=== PATIENT | male | born 1960 | race Caucasian/White ===

== ENCOUNTER → 2020-08-04 16:01 | Outpatient (BNVA) | payer BC, SELFPAY | PROVIDERS: Visit Provider Nurse Practitioner Family | DX: Z86.73 Personal history of transient ischemic attack (TIA), and cerebral infarction without residual deficits (principal); Z51.81 Encounter for therapeutic drug level monitoring; Z79.01 Long term (current) use of anticoagulants | CPT/HCPCS: 85610; 99211 ==

== ENCOUNTER → 2020-08-25 15:41 | Outpatient (BNVA) | payer BC, SELFPAY | PROVIDERS: PCP Nurse Practitioner Family; Visit Provider Internal Medicine | DX: Z86.73 Personal history of transient ischemic attack (TIA), and cerebral infarction without residual deficits (principal); Z51.81 Encounter for therapeutic drug level monitoring; Z79.01 Long term (current) use of anticoagulants | CPT/HCPCS: 85610 ==

== ENCOUNTER → 2020-09-15 15:36 | Outpatient (BNVA) | payer BC, SELFPAY | PROVIDERS: PCP Nurse Practitioner Family; Visit Provider Internal Medicine | DX: Z86.73 Personal history of transient ischemic attack (TIA), and cerebral infarction without residual deficits (principal); Z51.81 Encounter for therapeutic drug level monitoring; Z79.01 Long term (current) use of anticoagulants | CPT/HCPCS: 85610; 99211 ==

== ENCOUNTER → 2020-10-06 15:40 | Outpatient (BNVA) | payer BC, SELFPAY | PROVIDERS: PCP Nurse Practitioner Family; Referring Provider Nurse Practitioner Family; Visit Provider Internal Medicine | DX: Z86.73 Personal history of transient ischemic attack (TIA), and cerebral infarction without residual deficits (principal); Z51.81 Encounter for therapeutic drug level monitoring; Z79.01 Long term (current) use of anticoagulants | CPT/HCPCS: 85610; 99211 ==

== ENCOUNTER → 2020-10-25 09:05 | Outpatient (BNVA) | payer BC, SELFPAY | PROVIDERS: PCP Nurse Practitioner Family; Visit Provider Internal Medicine | DX: Z86.73 Personal history of transient ischemic attack (TIA), and cerebral infarction without residual deficits (principal); Z79.01 Long term (current) use of anticoagulants; Z51.81 Encounter for therapeutic drug level monitoring | CPT/HCPCS: 85610; 99211 ==

== ENCOUNTER 2020-11-10 06:16 | Day surgery (SDC) | payer BC, SELFPAY ==
[2020-11-02 14:34] VITALS: BMI 23.7
--- NOTE | 2020-11-09 12:46 | P.CONAN_ITS ---
Documented by User: Jessica Mcleod 11/09/20 12:46 HPI - Anesthesia Eval Consult details Narrative: 60yo M for Colonoscopy [facility] Past Medical History Medical History (Updated 11/10/20 @ 07:33 by Elle Buckley) Allergic rhinitis High cholesterol History of CVA (cerebrovascular accident) Hypertension On anticoagulant therapy RBBB Surgical History Surgical History H/O wrist surgery Hx of colonoscopy Hx of right inguinal hernia repair Social History Social History Advance Directives: No Advance Directives Information Provided: No Advance Directives on File: No Meds Allergies Allergy/AdvReac Type Severity Reaction Status Date / Time amoxicillin [Augmentin] Allergy Unknown RASH Verified 11/02/20 13:58 clavulanic acid [Augmentin] Allergy Unknown RASH Verified 11/02/20 13:58 penicillin V Allergy Unknown rash Verified 11/02/20 13:58 augmentin Allergy Unknown hives, Uncoded 11/02/20 13:58 swelling Clenbuterol HCl Allergy Unknown swelling Uncoded 11/02/20 13:58 Clindamycin HCl Allergy Unknown swelling Uncoded 11/02/20 13:58 Home Medications Medication Instructions Recorded Confirmed Type amlodipine 5 mg tablet 5 mg PO DAILY 10/25/20 11/02/20 History atorvastatin 80 mg tablet 80 mg PO BEDTIME 10/25/20 11/02/20 History Exam Exam Date and Time: November 09, 2020 1246 Height,Weight and Vital Signs: Height 5 ft 11 in Weight 77.111 kg Assessment and Plan Assessment Anesthesia Assessment: Chart Reviewed Documented by User: Elle Buckley 11/10/20 07:37 [facility] Past Medical History Medical History (Updated 11/10/20 @ 07:33 by Elle Buckley) Allergic rhinitis High cholesterol History of CVA (cerebrovascular accident) Hypertension On anticoagulant therapy RBBB Family History Family history of problems with anesthesia: No Surgical History Surgical History H/O wrist surgery Hx of colonoscopy Hx of right inguinal hernia repair History of Problems with Anesthesia: No Social History Social History Advance Directives: No Advance Directives Information Provided: No Advance Directives on File: No Meds Allergies Allergy/AdvReac Type Severity Reaction Status Date / Time amoxicillin [Augmentin] Allergy Unknown RASH Verified 11/02/20 13:58 clavulanic acid [Augmentin] Allergy Unknown RASH Verified 11/02/20 13:58 penicillin V Allergy Unknown rash Verified 11/02/20 13:58 augmentin Allergy Unknown hives, Uncoded 11/02/20 13:58 swelling Clenbuterol HCl Allergy Unknown swelling Uncoded 11/02/20 13:58 Clindamycin HCl Allergy Unknown swelling Uncoded 11/02/20 13:58 Home Medications Medication Instructions Recorded Confirmed Type amlodipine 5 mg tablet 5 mg PO DAILY 10/25/20 11/02/20 History atorvastatin 80 mg tablet 80 mg PO BEDTIME 10/25/20 11/02/20 History Exam Height,Weight and Vital Signs: Vital Signs Temp Pulse Resp BP Pulse Ox 11/10/20 07:04 99.1 F 103 H 18 143/76 H 98 Pertinent Lab Results Pertinent Lab Results: Lab Results 11/10/20 Range/Units 06:49 PT 13.0 (10.8-13.0) SEC INR 1.1 (0.9-1.1) Airway Mallampati Class: II TM Dist: >3cm Neck ROM: Full Partial: Upper Loose/Missing/Broken Teeth: No Heart: RRR Lungs: CTAB Assessment and Plan Assessment Anesthesia Assessment: Anesthesia Plan Discussed and Chart Reviewed Final Anesthetic Review NPO: Yes ASA Class: III Final Preanesthetic Review: No Changes in Pt Med Stat, Meds/Allgs Chart Reviewed, Consent Obtained/Reviewed and Anes Risks/Benef Reviewed Patient Risk: Intermediate Procedure Risk: Low Anesthetic Plan Anesthetic Plan: MAC: Disposition: Standard PACU
--- NOTE | 2020-11-10 | CT_ITS ---
EXAMINATION: CT COLONOGRAPHY CLINICAL INFORMATION: Incomplete colonoscopy COMPARISON: None TECHNIQUE: Bowel preparation: Suboptimal. Stool tagging with Gastrografin and barium: No stool tagging was utilized. Colonic distention: CO2 mechanical insufflator used via enema tube with incomplete distention. Acquisition: Low dose imaging targeted to colonic was performed in the supine and prone positions. Procedure: No immediate complication reported. Review: The acquired images were reviewed in axial, coronal and sagittal planes. Additional 3-D fly through images were reviewed at an independent workstation. This CT examination was performed using dose optimization techniques as appropriate, variously including the following: *Automated exposure control *Adjustment of mA and/or kV according to patient size (this includes techniques or standardized protocols for targeted exams where dose is matched to indication/reason for exam; i.e. 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 No large mass or collection suspected Colonic findings: The study is limited by incomplete distention, retained fluid and fecal residue. There is no large mass or suspicious polyp demonstrated. Small or moderate sized abnormalities could be obscured. There are some scattered colonic diverticula and there is some muscular wall thickening in the sigmoid colon. Non-colonic findings: No suspicious noncolonic findings CT/CT colonography IMPRESSION: Limited study. No convincing evidence of colon cancer or polyp likely to harbor significant neoplasia. I will seek a second opinion from Dr. Winters.
[2020-11-10 07:03] LABS: INTERNATIONAL NORM RATIO 1.1 (0.9-1.1)
[2020-11-10 07:04] VITALS: BP 143/76; PULSE 103; RESP 18; TEMP 37.3; O2SAT 98
[2020-11-10] MEDS: Lactated Ringers 1,000 ML 100 ML IVCONT (07:30)
--- NOTE | 2020-11-10 07:31 | MHC.SHP ---
Pre-Procedural Eval Section B Chief Complaint: Screening Details of Present Illness: See H&P no changes Relevant Family History (Specify if Yes): No Relevant Social History: None Present Medications: see Short Stay Collaborative assessment Medical History: Significant History (see h&p) History of Previous Operations: No relevant previous surgery Allergies: Allergies Allergy/AdvReac Type Severity Reaction Status Date / Time amoxicillin [Augmentin] Allergy Unknown RASH Verified 11/02/20 13:58 clavulanic acid [Augmentin] Allergy Unknown RASH Verified 11/02/20 13:58 penicillin V Allergy Unknown rash Verified 11/02/20 13:58 augmentin Allergy Unknown hives, Uncoded 11/02/20 13:58 swelling Clenbuterol HCl Allergy Unknown swelling Uncoded 11/02/20 13:58 Clindamycin HCl Allergy Unknown swelling Uncoded 11/02/20 13:58 Review of Systems Sugical H&P ROS: Negative: Constitution, Cardiovascular, Respiratory, Neurological, Psychiatric, Hem-Onc, Allergic/Immunologic, Gastrointestinal, Genitourinary, Musculoskeletal, Integumentary, Endocrine and Eyes/Ears/Nose/Throat Exam Surgical H&P Exam: Normal: HEENT, Normal: Heart, Normal: Lungs, Normal: Extremities, Normal: Abdomen, Normal: Skin and Normal: Neurological Plan Diagnosis/Plan: Unchanged I have reviewed the history and physical and performed a pertinent physical examination on my patient. No changes have occurred unless specified.
--- NOTE | 2020-11-10 07:59 | PM.OP ---
Brief Operative Note Date of Service: 11/10/20 Pre-op diagnosis: screening Post-op diagnosis: other (diverticulosis) Procedure: colonoscopy incomplete to 30 cm Surgeon: Bert Berg Anesthesia: MAC Estimated blood loss (mL): 0 Pathology: none sent Condition: stable Disposition: PACU
[2020-11-10 08:05] VITALS: BP 112/70; PULSE 82; RESP 16; TEMP 36.4; O2SAT 96
[2020-11-10 08:20] VITALS: BP 120/69; PULSE 80; RESP 18; O2SAT 97
--- NOTE | 2020-11-10 08:24 | OP_ITS ---
SURGEON: Bert Berg MD INDICATIONS: Colon cancer screening and prior history of adenomatous colon polyps. PREOPERATIVE DIAGNOSIS: POSTOPERATIVE DIAGNOSIS: PROCEDURE PERFORMED: Colonoscopy to 30 cm. ESTIMATED BLOOD LOSS: COMPLICATIONS: ANESTHESIA: ASSISTANTS: SPECIMENS: MEDICATIONS: Monitored anesthesia care. DESCRIPTION OF PROCEDURE: The history and physical performed. The risks and benefits of the procedure were explained to the patient. Informed consent was obtained. The patient was placed in the left lateral decubitus position. A digital rectal exam was performed and was found to be normal. The Olympus pediatric video colonoscope was introduced into the rectum and advanced to 30 cm. The scope could be advanced no further due to extensive diverticular disease with luminal narrowing. Examination was performed. The scope was removed. He tolerated the procedure well and was taken to recovery area in stable condition. FINDINGS: The visualized colonic mucosa was normal. The quality of prep was good. There was extensive diverticular disease in the sigmoid. The scope could not be advanced beyond 30 cm. No mass lesion was identified. Retroflexed examination was normal. IMPRESSION: Incomplete colonoscopy, diverticulosis. RECOMMENDATIONS: CT colonography after routine recovery. MD HOLLIE Wheeler/SU / [id number]
[2020-11-10 08:35] VITALS: BP 123/75; PULSE 87; RESP 20; O2SAT 97
--- NOTE | 2020-11-10 09:27 | HO.POSTANES ---
Post Anesthesia Evaluation Post Anesthesia Evaluation Vital Signs: Vital Signs Temp Pulse Resp BP Pulse Ox 11/10/20 08:35 97.5 F 87 20 123/75 97 11/10/20 08:20 80 18 120/69 97 11/10/20 08:05 97.5 F 82 16 112/70 96 11/10/20 07:04 99.1 F 103 H 18 143/76 H 98 Anesthesia: Monitored Mental Status: Awake Pain Control: Satisfactory Nausea/Vomiting: None Hydration: Adequate Anesthesia-Related Issues: No Anes. Related Issues
== END 2020-11-10 09:30 | disposition home or self-care (01) ==
LOC: HO.SSS 06:17
PROVIDERS: Nurse Practitioner; PCP Nurse Practitioner Family; Visit Provider Internal Medicine Gastroenterology
PROC: 0DJD8ZZ Inspection of Lower Intestinal Tract, Via Natural or Artificial Opening Endoscopic (ICD-10-PCS; CPT 45378; principal; 2020-11-10 07:30)
DX: Z12.11 Encounter for screening for malignant neoplasm of colon (principal); Z86.010 Personal history of colon polyps; K57.30 Diverticulosis of large intestine without perforation or abscess without bleeding; I10 Essential (primary) hypertension; I45.10 Unspecified right bundle-branch block; Z86.73 Personal history of transient ischemic attack (TIA), and cerebral infarction without residual deficits; Z79.01 Long term (current) use of anticoagulants; Z88.0 Allergy status to penicillin; Z88.8 Allergy status to other drugs, medicaments and biological substances; Z79.899 Other long term (current) drug therapy
CPT/HCPCS: 45378; 36415; 74261; 85610

== ENCOUNTER → 2020-11-13 15:27 | Outpatient (BNVA) | payer BC, SELFPAY | PROVIDERS: PCP Nurse Practitioner Family; Visit Provider Internal Medicine | DX: Z86.73 Personal history of transient ischemic attack (TIA), and cerebral infarction without residual deficits (principal); Z79.01 Long term (current) use of anticoagulants; Z51.81 Encounter for therapeutic drug level monitoring | CPT/HCPCS: 85610; 99211 ==

== ENCOUNTER → 2020-11-17 15:39 | Outpatient (BNVA) | payer BC, SELFPAY | PROVIDERS: PCP Nurse Practitioner Family; Visit Provider Internal Medicine | DX: Z86.73 Personal history of transient ischemic attack (TIA), and cerebral infarction without residual deficits (principal); Z51.81 Encounter for therapeutic drug level monitoring; Z79.01 Long term (current) use of anticoagulants | CPT/HCPCS: 85610; 99211 ==

== ENCOUNTER → 2020-11-24 15:28 | Outpatient (BNVA) | payer BC, SELFPAY | PROVIDERS: PCP Nurse Practitioner Family; Visit Provider Internal Medicine | DX: Z86.73 Personal history of transient ischemic attack (TIA), and cerebral infarction without residual deficits (principal); Z51.81 Encounter for therapeutic drug level monitoring; Z79.01 Long term (current) use of anticoagulants | CPT/HCPCS: 85610; 99211 ==

== ENCOUNTER → 2020-12-08 15:35 | Outpatient (BNVA) | payer BC, SELFPAY | PROVIDERS: PCP Nurse Practitioner Family; Visit Provider Internal Medicine | DX: Z86.73 Personal history of transient ischemic attack (TIA), and cerebral infarction without residual deficits (principal); Z51.81 Encounter for therapeutic drug level monitoring; Z79.01 Long term (current) use of anticoagulants | CPT/HCPCS: 85610; 99211 ==

== ENCOUNTER → 2020-12-29 15:26 | Outpatient (BNVA) | payer BC, SELFPAY | PROVIDERS: PCP Nurse Practitioner Family; Visit Provider Internal Medicine | DX: Z86.73 Personal history of transient ischemic attack (TIA), and cerebral infarction without residual deficits (principal); Z51.81 Encounter for therapeutic drug level monitoring; Z79.01 Long term (current) use of anticoagulants | CPT/HCPCS: 85610; 99211 ==

== ENCOUNTER → 2021-01-19 15:28 | Outpatient (BNVA) | payer BC, SELFPAY | PROVIDERS: PCP Nurse Practitioner Family; Visit Provider Internal Medicine | DX: Z86.718 Personal history of other venous thrombosis and embolism (principal); Z51.81 Encounter for therapeutic drug level monitoring; Z79.01 Long term (current) use of anticoagulants | CPT/HCPCS: 85610; 99211 ==

== ENCOUNTER → 2021-02-09 10:27 | Outpatient (BNVA) | payer BC, SELFPAY | PROVIDERS: PCP Nurse Practitioner Family; Visit Provider Internal Medicine | DX: Z86.73 Personal history of transient ischemic attack (TIA), and cerebral infarction without residual deficits (principal); Z79.01 Long term (current) use of anticoagulants; Z51.81 Encounter for therapeutic drug level monitoring | CPT/HCPCS: 85610; 99211 ==

== ENCOUNTER → 2021-02-16 11:15 | Outpatient (BNVA) | payer BC, SELFPAY | PROVIDERS: PCP Nurse Practitioner Family; Visit Provider Internal Medicine | DX: Z86.73 Personal history of transient ischemic attack (TIA), and cerebral infarction without residual deficits (principal); Z79.01 Long term (current) use of anticoagulants; Z51.81 Encounter for therapeutic drug level monitoring | CPT/HCPCS: 85610; 99211 ==

== ENCOUNTER → 2021-03-02 15:31 | Outpatient (BNVA) | payer BC, SELFPAY | PROVIDERS: PCP Nurse Practitioner Family; Visit Provider Internal Medicine | DX: Z86.73 Personal history of transient ischemic attack (TIA), and cerebral infarction without residual deficits (principal); Z51.81 Encounter for therapeutic drug level monitoring; Z79.01 Long term (current) use of anticoagulants | CPT/HCPCS: 85610; 99211 ==

== ENCOUNTER → 2021-03-16 13:42 | Outpatient (BNVA) | payer BC, SELFPAY | PROVIDERS: PCP Nurse Practitioner Family; Visit Provider Internal Medicine | DX: Z86.73 Personal history of transient ischemic attack (TIA), and cerebral infarction without residual deficits (principal); Z51.81 Encounter for therapeutic drug level monitoring; Z79.01 Long term (current) use of anticoagulants | CPT/HCPCS: 85610; 99211 ==

== ENCOUNTER → 2021-04-06 15:32 | Outpatient (BNVA) | payer BC, SELFPAY | PROVIDERS: PCP Nurse Practitioner Family; Visit Provider Internal Medicine | DX: Z86.73 Personal history of transient ischemic attack (TIA), and cerebral infarction without residual deficits (principal); Z51.81 Encounter for therapeutic drug level monitoring; Z79.01 Long term (current) use of anticoagulants | CPT/HCPCS: 85610; 99211 ==

== ENCOUNTER → 2021-04-27 15:25 | Outpatient (BNVA) | payer BC, SELFPAY | PROVIDERS: PCP Nurse Practitioner Family; Visit Provider Internal Medicine | DX: Z86.73 Personal history of transient ischemic attack (TIA), and cerebral infarction without residual deficits (principal); Z51.81 Encounter for therapeutic drug level monitoring; Z79.01 Long term (current) use of anticoagulants | CPT/HCPCS: 85610; 99211 ==

== ENCOUNTER → 2021-05-18 15:30 | Outpatient (BNVA) | payer BC, SELFPAY | PROVIDERS: PCP Nurse Practitioner Family; Visit Provider Internal Medicine | DX: Z86.73 Personal history of transient ischemic attack (TIA), and cerebral infarction without residual deficits (principal); Z51.81 Encounter for therapeutic drug level monitoring; Z79.01 Long term (current) use of anticoagulants | CPT/HCPCS: 85610; 99211 ==

== ENCOUNTER → 2021-06-08 15:34 | Outpatient (BNVA) | payer BC, SELFPAY | PROVIDERS: PCP Nurse Practitioner Family; Visit Provider Internal Medicine | DX: Z86.73 Personal history of transient ischemic attack (TIA), and cerebral infarction without residual deficits (principal); Z51.81 Encounter for therapeutic drug level monitoring; Z79.01 Long term (current) use of anticoagulants | CPT/HCPCS: 85610; 99211 ==

== ENCOUNTER → 2021-06-29 15:32 | Outpatient (BNVA) | payer BC, SELFPAY | PROVIDERS: PCP Nurse Practitioner Family; Visit Provider Internal Medicine | DX: Z86.73 Personal history of transient ischemic attack (TIA), and cerebral infarction without residual deficits (principal); Z51.81 Encounter for therapeutic drug level monitoring; Z79.01 Long term (current) use of anticoagulants | CPT/HCPCS: 85610; 99211 ==

== ENCOUNTER → 2021-07-13 15:26 | Outpatient (BNVA) | payer BC, SELFPAY | PROVIDERS: Visit Provider Urology ==

== ENCOUNTER → 2021-07-20 13:21 | Outpatient (BNVA) | payer BC, SELFPAY | PROVIDERS: PCP Nurse Practitioner Family; Visit Provider Internal Medicine | DX: Z86.73 Personal history of transient ischemic attack (TIA), and cerebral infarction without residual deficits (principal); Z51.81 Encounter for therapeutic drug level monitoring; Z79.01 Long term (current) use of anticoagulants | CPT/HCPCS: 85610; 99211 ==

== ENCOUNTER → 2021-08-10 09:01 | Outpatient (BNVA) | payer BC, SELFPAY | PROVIDERS: PCP Nurse Practitioner Family; Visit Provider Internal Medicine | DX: Z86.73 Personal history of transient ischemic attack (TIA), and cerebral infarction without residual deficits (principal); Z51.81 Encounter for therapeutic drug level monitoring; Z79.01 Long term (current) use of anticoagulants | CPT/HCPCS: 85610; 99211 ==

== ENCOUNTER → 2021-08-31 15:30 | Outpatient (BNVA) | payer BC, SELFPAY | PROVIDERS: PCP Nurse Practitioner Family; Visit Provider Internal Medicine | DX: Z86.73 Personal history of transient ischemic attack (TIA), and cerebral infarction without residual deficits (principal); Z51.81 Encounter for therapeutic drug level monitoring; Z79.01 Long term (current) use of anticoagulants | CPT/HCPCS: 85610; 99211 ==

== ENCOUNTER → 2021-09-21 15:41 | Outpatient (BNVA) | payer BC, SELFPAY | PROVIDERS: PCP Nurse Practitioner Family; Visit Provider Internal Medicine | DX: Z86.73 Personal history of transient ischemic attack (TIA), and cerebral infarction without residual deficits (principal); Z51.81 Encounter for therapeutic drug level monitoring; Z79.01 Long term (current) use of anticoagulants | CPT/HCPCS: 85610; 99211 ==

== ENCOUNTER → 2021-10-12 15:29 | Outpatient (BNVA) | payer BC, SELFPAY | PROVIDERS: PCP Nurse Practitioner Family; Visit Provider Internal Medicine | DX: Z86.73 Personal history of transient ischemic attack (TIA), and cerebral infarction without residual deficits (principal); Z51.81 Encounter for therapeutic drug level monitoring; Z79.01 Long term (current) use of anticoagulants | CPT/HCPCS: 85610; 99211 ==

== ENCOUNTER → 2021-10-25 10:43 | Outpatient (BNVA) | payer BC, SELFPAY | PROVIDERS: PCP Nurse Practitioner Family; Visit Provider Internal Medicine | DX: Z86.73 Personal history of transient ischemic attack (TIA), and cerebral infarction without residual deficits (principal); Z51.81 Encounter for therapeutic drug level monitoring; Z79.01 Long term (current) use of anticoagulants | CPT/HCPCS: 85610; 99211 ==

== ENCOUNTER → 2021-11-16 13:08 | Outpatient (BNVA) | payer BC, SELFPAY | PROVIDERS: PCP Nurse Practitioner Family; Visit Provider Internal Medicine | DX: Z86.73 Personal history of transient ischemic attack (TIA), and cerebral infarction without residual deficits (principal); Z51.81 Encounter for therapeutic drug level monitoring; Z79.01 Long term (current) use of anticoagulants | CPT/HCPCS: 85610; 99211 ==

== ENCOUNTER → 2021-12-07 09:36 | Outpatient (BNVA) | payer BC, SELFPAY | PROVIDERS: PCP Internal Medicine; Visit Provider Internal Medicine | DX: Z86.73 Personal history of transient ischemic attack (TIA), and cerebral infarction without residual deficits (principal); Z51.81 Encounter for therapeutic drug level monitoring; Z79.01 Long term (current) use of anticoagulants | CPT/HCPCS: 85610; 99211 ==

== ENCOUNTER → 2021-12-28 11:06 | Outpatient (BNVA) | payer BC, SELFPAY | PROVIDERS: PCP Internal Medicine; Visit Provider Internal Medicine | DX: Z86.73 Personal history of transient ischemic attack (TIA), and cerebral infarction without residual deficits (principal); Z51.81 Encounter for therapeutic drug level monitoring; Z79.01 Long term (current) use of anticoagulants | CPT/HCPCS: 85610; 99211 ==

== ENCOUNTER → 2022-01-18 15:37 | Outpatient (BNVA) | payer BC, SELFPAY | PROVIDERS: PCP Internal Medicine; Visit Provider Internal Medicine | DX: Z86.73 Personal history of transient ischemic attack (TIA), and cerebral infarction without residual deficits (principal); Z79.01 Long term (current) use of anticoagulants; Z51.81 Encounter for therapeutic drug level monitoring | CPT/HCPCS: 85610; 99211 ==

== ENCOUNTER → 2022-02-08 15:42 | Outpatient (BNVA) | payer BC, SELFPAY | PROVIDERS: PCP Internal Medicine; Visit Provider Internal Medicine | DX: Z86.73 Personal history of transient ischemic attack (TIA), and cerebral infarction without residual deficits (principal); Z51.81 Encounter for therapeutic drug level monitoring; Z79.01 Long term (current) use of anticoagulants | CPT/HCPCS: 85610; 99211 ==

== ENCOUNTER 2022-02-23 06:53 | Outpatient (REF) | payer BC, SELFPAY ==
[2022-02-23 07:10] LABS: MANUAL DIFF FLAG NO
[2022-02-23 07:47] LABS: Basophils Percent Auto 0.2 % (0-2); Eosinophils Absolute Auto 0.1 X10*3/uL (0.0-0.4); Eosinophils Percent Auto 1.1 % (0-4); Hematocrit 44.9 % (42.0-52.0); Hemoglobin 14.5 g/dl (14.0-18.0); Imm Gran Abs Auto 0.02 X10*3/uL (0.00-0.03); Imm Gran Pct Auto 0.2 % (0.0-0.4); Lymphocytes Absolute Auto 1.7 X10*3/uL (1.2-4.9); Lymphocytes Percent Auto 19.5 % (20-40); Mean Corpuscular HGB Conc 32.3 g/dl (31.0-36.0); Mean Corpuscular Hemoglobin 29.2 pg (27.0-33.0); Mean Corpuscular Volume 90.5 fL (80.0-98.0); Mean Platelet Volume 10.8 fL (9.4-12.4); Monocytes Absolute Auto 0.8 X10*3/uL (0.1-1.2); Monocytes Percent Auto 9.2 % (2-11); Neutrophils Percent Auto 69.8 % (45-73); Platelet Count 215 X10*3/uL (160-400); Red Blood Count 4.96 X10*6/uL (4.60-5.80); Red Cell Distribution Width 12.9 % (11.0-16.0); White Blood Count 8.6 X10*3/uL (4.8-10.8)
[2022-02-23 08:11] LABS: Alanine Aminotransferase 25 U/L (0-40); Albumin Level 3.8 g/dL (3.5-5.0); Alkaline Phosphatase 115 U/L (39-117); Anion Gap 10 (12-20); Aspartate Amino Transferase 26 U/L (5-37); Bilirubin Total 0.6 mg/dL (0.0-1.0); Blood Urea Nitrogen 14 mg/dL (9-16); Calcium 8.7 mg/dL (8.4-10.2); Carbon Dioxide 25 mmol/L (22-29); Chloride 106 mmol/L (96-108); Cholesterol 143 mg/dL; Estimated Glomerular Filt Rate > 60; Glucose Random 114 mg/dL (60-115); HDL Cholesterol 39 mg/dL; LDL Cholesterol Calculated 88 mg/dl; Potassium 4.3 mmol/L (3.3-5.1); Sodium 137 mmol/L (135-145); Total Protein 6.7 g/dL (6.5-8.0); Triglycerides 82 mg/dL
[2022-02-23 08:21] LABS: Free T4 (Free Thyroxine) 0.94 ng/dL (0.71-1.85); Prostate Specific Antigen Scr 0.32 ng/mL (<0.05-4.0); Thyroid Stimulating Hormone 1.57 uIU/mL (0.32-4.0)
[2022-02-25 07:56] LABS: Folate 7.9 ng/mL (> or = 4.0); Vitamin B12 204 pg/mL (200-900)
== END 2022-02-23 06:54 | disposition home or self-care (01) ==
LOC: HO.LAB 06:53
PROVIDERS: PCP Internal Medicine; Visit Provider Internal Medicine
DX: Z12.5 Encounter for screening for malignant neoplasm of prostate (principal); E78.00 Pure hypercholesterolemia, unspecified; I10 Essential (primary) hypertension
CPT/HCPCS: 36415; 80053; 80061; 82607; 82746; 84153; 84439; 84443; 85025

== ENCOUNTER → 2022-03-01 15:07 | Outpatient (BNVA) | payer BC, SELFPAY | PROVIDERS: PCP Internal Medicine; Visit Provider Internal Medicine | DX: Z86.73 Personal history of transient ischemic attack (TIA), and cerebral infarction without residual deficits (principal); Z79.01 Long term (current) use of anticoagulants; Z51.81 Encounter for therapeutic drug level monitoring | CPT/HCPCS: 85610; 99211 ==

== ENCOUNTER → 2022-03-22 15:42 | Outpatient (BNVA) | payer BC, SELFPAY | PROVIDERS: PCP Internal Medicine; Visit Provider Internal Medicine | DX: Z86.73 Personal history of transient ischemic attack (TIA), and cerebral infarction without residual deficits (principal); Z79.01 Long term (current) use of anticoagulants; Z51.81 Encounter for therapeutic drug level monitoring | CPT/HCPCS: 85610; 99211 ==

== ENCOUNTER → 2022-04-12 15:41 | Outpatient (BNVA) | payer BC, SELFPAY | PROVIDERS: PCP Internal Medicine; Visit Provider Internal Medicine | DX: Z86.73 Personal history of transient ischemic attack (TIA), and cerebral infarction without residual deficits (principal); Z79.01 Long term (current) use of anticoagulants; Z51.81 Encounter for therapeutic drug level monitoring | CPT/HCPCS: 85610; 99211 ==

== ENCOUNTER → 2022-05-03 08:43 | Outpatient (BNVA) | payer BC, SELFPAY | PROVIDERS: PCP Internal Medicine; Visit Provider Internal Medicine | DX: Z86.73 Personal history of transient ischemic attack (TIA), and cerebral infarction without residual deficits (principal); Z51.81 Encounter for therapeutic drug level monitoring; Z79.01 Long term (current) use of anticoagulants | CPT/HCPCS: 85610; 99211 ==

== ENCOUNTER → 2022-05-24 09:13 | Outpatient (BNVA) | payer BC, SELFPAY | PROVIDERS: PCP Internal Medicine; Visit Provider Internal Medicine | DX: Z86.73 Personal history of transient ischemic attack (TIA), and cerebral infarction without residual deficits (principal); Z51.81 Encounter for therapeutic drug level monitoring; Z79.01 Long term (current) use of anticoagulants | CPT/HCPCS: 85610; 99211 ==

== ENCOUNTER → 2022-05-31 08:12 | Outpatient (BNVA) | payer BC, SELFPAY | PROVIDERS: PCP Internal Medicine; Visit Provider Internal Medicine | DX: Z86.73 Personal history of transient ischemic attack (TIA), and cerebral infarction without residual deficits (principal); Z51.81 Encounter for therapeutic drug level monitoring; Z79.01 Long term (current) use of anticoagulants | CPT/HCPCS: 85610; 99211 ==

== ENCOUNTER → 2022-06-21 15:40 | Outpatient (BNVA) | payer BC, SELFPAY | PROVIDERS: PCP Internal Medicine; Visit Provider Internal Medicine | DX: Z86.73 Personal history of transient ischemic attack (TIA), and cerebral infarction without residual deficits (principal); Z51.81 Encounter for therapeutic drug level monitoring; Z79.01 Long term (current) use of anticoagulants | CPT/HCPCS: 85610; 99211 ==

== ENCOUNTER → 2022-07-12 15:49 | Outpatient (BNVA) | payer BC, SELFPAY | PROVIDERS: PCP Internal Medicine; Visit Provider Internal Medicine | DX: Z86.73 Personal history of transient ischemic attack (TIA), and cerebral infarction without residual deficits (principal); Z51.81 Encounter for therapeutic drug level monitoring; Z79.01 Long term (current) use of anticoagulants | CPT/HCPCS: 85610; 99211 ==

== ENCOUNTER → 2022-08-02 10:43 | Outpatient (BNVA) | payer BC, SELFPAY | PROVIDERS: PCP Internal Medicine; Visit Provider Internal Medicine | DX: Z86.73 Personal history of transient ischemic attack (TIA), and cerebral infarction without residual deficits (principal); Z79.01 Long term (current) use of anticoagulants; Z51.81 Encounter for therapeutic drug level monitoring | CPT/HCPCS: 85610; 99211 ==

== ENCOUNTER → 2022-08-23 15:41 | Outpatient (BNVA) | payer BC, SELFPAY | PROVIDERS: PCP Internal Medicine; Visit Provider Internal Medicine | DX: Z86.73 Personal history of transient ischemic attack (TIA), and cerebral infarction without residual deficits (principal); Z79.01 Long term (current) use of anticoagulants; Z51.81 Encounter for therapeutic drug level monitoring | CPT/HCPCS: 85610; 99211 ==

== ENCOUNTER → 2022-09-13 15:53 | Outpatient (BNVA) | payer BC, SELFPAY | PROVIDERS: PCP Internal Medicine; Visit Provider Internal Medicine | DX: Z86.73 Personal history of transient ischemic attack (TIA), and cerebral infarction without residual deficits (principal); Z51.81 Encounter for therapeutic drug level monitoring; Z79.01 Long term (current) use of anticoagulants | CPT/HCPCS: 85610; 99211 ==

== ENCOUNTER → 2022-10-04 15:40 | Outpatient (BNVA) | payer BC, SELFPAY | PROVIDERS: PCP Internal Medicine; Visit Provider Internal Medicine | DX: Z86.73 Personal history of transient ischemic attack (TIA), and cerebral infarction without residual deficits (principal); Z51.81 Encounter for therapeutic drug level monitoring; Z79.01 Long term (current) use of anticoagulants | CPT/HCPCS: 85610; 99211 ==

== ENCOUNTER → 2022-10-25 09:10 | Outpatient (BNVA) | payer BC, SELFPAY | PROVIDERS: PCP Internal Medicine; Visit Provider Internal Medicine | DX: Z86.73 Personal history of transient ischemic attack (TIA), and cerebral infarction without residual deficits (principal); Z79.01 Long term (current) use of anticoagulants; Z51.81 Encounter for therapeutic drug level monitoring | CPT/HCPCS: 85610; 99211 ==

== ENCOUNTER → 2022-11-15 15:51 | Outpatient (BNVA) | payer BC, SELFPAY | PROVIDERS: PCP Internal Medicine; Visit Provider Internal Medicine | DX: Z86.73 Personal history of transient ischemic attack (TIA), and cerebral infarction without residual deficits (principal); Z51.81 Encounter for therapeutic drug level monitoring; Z79.01 Long term (current) use of anticoagulants | CPT/HCPCS: 85610; 99211 ==

== ENCOUNTER → 2022-12-06 15:40 | Outpatient (BNVA) | payer BC, SELFPAY | PROVIDERS: PCP Internal Medicine; Visit Provider Internal Medicine | DX: Z86.73 Personal history of transient ischemic attack (TIA), and cerebral infarction without residual deficits (principal); Z51.81 Encounter for therapeutic drug level monitoring; Z79.01 Long term (current) use of anticoagulants | CPT/HCPCS: 85610; 99211 ==

== ENCOUNTER → 2022-12-26 15:43 | Outpatient (BNVA) | payer BC, SELFPAY | PROVIDERS: PCP Internal Medicine; Visit Provider Internal Medicine | DX: Z86.73 Personal history of transient ischemic attack (TIA), and cerebral infarction without residual deficits (principal); Z51.81 Encounter for therapeutic drug level monitoring; Z79.01 Long term (current) use of anticoagulants | CPT/HCPCS: 85610; 99211 ==

== ENCOUNTER → 2023-01-10 13:40 | Outpatient (BNVA) | payer BC, SELFPAY | PROVIDERS: PCP Internal Medicine; Visit Provider Internal Medicine | DX: Z86.73 Personal history of transient ischemic attack (TIA), and cerebral infarction without residual deficits (principal); Z51.81 Encounter for therapeutic drug level monitoring; Z79.01 Long term (current) use of anticoagulants | CPT/HCPCS: 85610; 99211 ==

== ENCOUNTER → 2023-01-31 13:53 | Outpatient (BNVA) | payer BC, SELFPAY | PROVIDERS: PCP Internal Medicine; Visit Provider Internal Medicine | DX: Z86.73 Personal history of transient ischemic attack (TIA), and cerebral infarction without residual deficits (principal); Z51.81 Encounter for therapeutic drug level monitoring; Z79.01 Long term (current) use of anticoagulants | CPT/HCPCS: 85610; 99211 ==

== ENCOUNTER → 2023-02-28 15:56 | Outpatient (BNVA) | payer BC, SELFPAY | PROVIDERS: PCP Internal Medicine; Visit Provider Internal Medicine | DX: Z51.81 Encounter for therapeutic drug level monitoring (principal); Z79.01 Long term (current) use of anticoagulants; Z86.73 Personal history of transient ischemic attack (TIA), and cerebral infarction without residual deficits | CPT/HCPCS: 85610; 99211 ==

== ENCOUNTER → 2023-03-28 15:43 | Outpatient (BNVA) | payer BC, SELFPAY | PROVIDERS: PCP Internal Medicine; Visit Provider Internal Medicine | DX: Z86.73 Personal history of transient ischemic attack (TIA), and cerebral infarction without residual deficits (principal); Z51.81 Encounter for therapeutic drug level monitoring; Z79.01 Long term (current) use of anticoagulants | CPT/HCPCS: 85610; 99211 ==

== ENCOUNTER 2023-04-19 07:24 | Outpatient (REF) | payer BC, SELFPAY ==
[2023-04-19 08:12] LABS: Estimated Average Glucose 120 mg/dL; Hemoglobin A1c % 5.8 %
[2023-04-19 08:37] LABS: Alanine Aminotransferase 20 U/L (0-40); Albumin Level 3.9 g/dL (3.5-5.0); Alkaline Phosphatase 118 U/L (39-117); Anion Gap 14 (12-20); Aspartate Amino Transferase 21 U/L (5-37); Bilirubin Total 0.5 mg/dL (0.0-1.0); Blood Urea Nitrogen 17 mg/dL (9-16); Calcium 9.3 mg/dL (8.4-10.2); Carbon Dioxide 22 mmol/L (22-29); Chloride 108 mmol/L (96-108); Cholesterol 153 mg/dL; Estimated Glomerular Filt Rate > 60; Glucose Random 111 mg/dL (60-115); HDL Cholesterol 43 mg/dL; LDL Cholesterol Calculated 99 mg/dl; Potassium 4.8 mmol/L (3.3-5.1); Sodium 139 mmol/L (135-145); Triglycerides 59 mg/dL
[2023-04-19 09:01] LABS: Prostate Specific Antigen 0.46 ng/mL (<0.05-4.0)
[2023-04-19 09:08] LABS: Folate 5.4 ng/mL (> or = 4.0); Vitamin B12 494 pg/mL (200-900)
== END 2023-04-19 07:25 | disposition home or self-care (01) ==
LOC: HO.LAB 07:24
PROVIDERS: Absent Provider Internal Medicine; PCP Internal Medicine; Visit Provider Urology
DX: R73.02 Impaired glucose tolerance (oral) (principal); E78.00 Pure hypercholesterolemia, unspecified; N40.0 Benign prostatic hyperplasia without lower urinary tract symptoms; E53.8 Deficiency of other specified B group vitamins; Z12.5 Encounter for screening for malignant neoplasm of prostate
CPT/HCPCS: 36415; 80053; 80061; 82607; 82746; 83036; 84153

== ENCOUNTER → 2023-04-25 15:48 | Outpatient (BNVA) | payer BC, SELFPAY | PROVIDERS: PCP Internal Medicine; Visit Provider Internal Medicine | DX: Z51.81 Encounter for therapeutic drug level monitoring (principal); Z79.01 Long term (current) use of anticoagulants; Z86.73 Personal history of transient ischemic attack (TIA), and cerebral infarction without residual deficits | CPT/HCPCS: 85610; 99211 ==

== ENCOUNTER 2023-05-23 09:10 | Outpatient (AMB) | payer BC, SELFPAY ==
[2023-05-23 09:17] LABS: Prothrombin Time Whole Bld POC 32.5 sec (11.1-13.5); ~PT, ~INR - Anti Coag Clinic 2.7 (0.9-1.1)
--- NOTE | 2023-05-23 09:24 | MHC.OFFVISCO ---
Intake Intake Visit Reasons: Anticoagulation Allergies amoxicillin [Augmentin] Allergy (Unknown, Verified 05/23/23 09:12) RASH clavulanic acid [Augmentin] Allergy (Unknown, Verified 05/23/23 09:12) RASH penicillin V Allergy (Unknown, Verified 05/23/23 09:12) rash augmentin Allergy (Unknown, Uncoded 05/23/23 09:12) hives, swelling Clenbuterol HCl Allergy (Unknown, Uncoded 05/23/23 09:12) swelling Clindamycin HCl Allergy (Unknown, Uncoded 05/23/23 09:12) swelling Medication List - Last Reconciled 05/23/23 by Marina Kurtz, RN amlodipine 5 mg PO DAILY 90 days atorvastatin 80 mg PO BEDTIME 90 days cyanocobalamin (vitamin B-12) 1,000 mcg PO DAILY warfarin 5 mg See Protocol PO DAILY Nursing Note Amb to ACS feeling well Medications and supplements reviewed No changes in health, diet, medications, or supplements Denies any unusual signs and symptoms of bruising, bleeding Denies any new Chest pain, SOB, or clotting INR: 2.7 in therapeutic range Nutritional guidance given: balance greens and reds in diet Dose: continue usual dosing;5mg x 3 days 7.5mg x 4 days F/U INR: 4 weeks Patient verbalizes understanding of instructions given with accurate read back/ teach back of dosing Anti-Coag Initial Assessment Social Hx Patient Tobacco Use Status: Former Tobacco user Tobacco use type: Cigarette Coding Level of Care Code Est Patient Level 1 Diagnoses Current use of anticoagulant therapy Z79.01 Time Spent (min) 15 Assessment & Plan Assessment & Plan (1) Current use of anticoagulant therapy: Code(s): Z79.01 - 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
== END 2023-05-23 09:26 | disposition home or self-care (01) ==
LOC: HO.ACS 09:10
PROVIDERS: PCP Internal Medicine; Visit Provider Internal Medicine
DX: Z79.01 Long term (current) use of anticoagulants (principal)

== ENCOUNTER → 2023-05-23 09:10 | Outpatient (BNVA) | payer BC, SELFPAY | PROVIDERS: PCP Internal Medicine; Visit Provider Internal Medicine | DX: Z51.81 Encounter for therapeutic drug level monitoring (principal); Z79.01 Long term (current) use of anticoagulants; Z86.73 Personal history of transient ischemic attack (TIA), and cerebral infarction without residual deficits | CPT/HCPCS: 85610; 99211 ==

== ENCOUNTER 2023-05-30 10:50 | Outpatient (AMB) | payer BC, SELFPAY ==
[2023-05-30 10:55] VITALS: BP 152/94; PULSE 83; O2SAT 99; BMI 26.4
--- NOTE | 2023-05-30 10:55 | A.OFFPC_ITS ---
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 Allergies amoxicillin [Augmentin] Allergy (Unknown, Verified 05/30/23 11:37) RASH clavulanic acid [Augmentin] Allergy (Unknown, Verified 05/30/23 11:37) RASH penicillin V Allergy (Unknown, Verified 05/30/23 11:37) rash augmentin Allergy (Unknown, Uncoded 05/30/23 11:08) hives, swelling Clenbuterol HCl Allergy (Unknown, Uncoded 05/30/23 11:08) swelling Clindamycin HCl Allergy (Unknown, Uncoded 05/30/23 11:08) swelling Medication List - Last Reconciled 05/30/23 by SHORTY Felder amlodipine 5 mg PO DAILY 90 days atorvastatin 80 mg PO BEDTIME 90 days cyanocobalamin (vitamin B-12) 1,000 mcg PO DAILY warfarin 5 mg See Protocol PO DAILY Tobacco use date assessed: 05/30/23 Dental Screening Dental Screen Date: 05/30/23 HPI HPI Comments History of Present Illness Details 62-yeqr-old overweight male with a history of CVA November 2018 BPH, hypertension, hypercholesterolemia last seen in february. Patient of Dr. Diaz presents today for lab results. Labs results reviewed with patient in detail. Patient denies any acute complaints. Continues to follow with the coumading clinic for management of INR, last INR within range 2.7. PFSH Medical History (Updated 03/01/22 @ 14:50 by Georges Diaz MD) Allergic rhinitis Chronic pancreatitis Condyloma acuminatum of scrotum Diverticular disease Duodenal ulcer History of CVA (cerebrovascular accident) Hypercholesterolemia Hypertension On anticoagulant therapy RBBB Spermatocele Surgical History (Updated 11/18/21 @ 17:09 by Georges Diaz MD) H/O wrist surgery Hx of colonoscopy Hx of right inguinal hernia repair S/P trigger finger release Family History (Updated 11/23/21 @ 13:59 by Georges Diaz MD) Father Myocarditis Sister SVT (supraventricular tachycardia) Mother Substance abuse Social History (Updated 01/21/22 @ 14:00 by Georges Diaz MD) Housing: House Patient Tobacco Use Status: Former Tobacco user Tobacco use type: Cigarette Years Smoked: quit 42 years old e-Cigarette/Vaping Use: Never Used Second Hand Smoke Exposure: No Current occupational status: employed Cognitive needs: No Hearing needs: No Vision needs: No Questionnaire PHQ-9 Over the last 2 weeks, how often have you been bothered by any of the following problems? 1. Little interest or pleasure in doing things: not at all 2. Feeling down, depressed, or hopeless: not at all 3. Trouble falling or staying asleep, or sleeping too much: not at all 4. Feeling tired or having little energy: not at all 5. Poor appetite or overeating: not at all 6. Feeling bad about yourself - or that you are a failure or have let yourself or your family down: not at all 7. Trouble concentrating on things, such as reading the newspaper or watching television: not at all 8. Moving or speaking so slowly that other people could have noticed. Or the opposite - being so fidgety or restless that you have been moving around a lot more than usual: not at all 9. Thoughts that you would be better off or of hurting yourself in some way: not at all Total score: 0 Depression Screening Interpretation: Negative Source: Developed by Drs. Antoine Patel, Narcisa Isaacs, Rico Daugherty and colleagues, with an educational cristal from [employer]. Thrive Questionnaire Date Thrive assessed: 05/30/23 I am a: Patient What is your living situation today?: I have a steady place to live Within the past 12 months, did the food you bought not last and you didn't have the money to get more?: Never true Within the past 12 months, did you worry whether your food would run out before you got money to buy more?: Never true AUDIT C Alcohol Use Questionnaire (AUDIT-C) 1. How often do you have a drink containing alcohol?: Monthly or less 2. How many drinks containing alcohol do you have on a typical day when you are drinking?: 1 or 2 3. How often do you have six or more drinks on one occasion?: Never Total Score: 1 KASI-7 AMB Questionnaire KASI-7 Date KAIS - 7 assessed: 05/30/23 Feeling nervous, anxious, or on edge: 0 = Not at all Not being able to stop or control worryin = Not at all Worrying too much about different things: 0 = Not at all Trouble relaxin = Not at all Being so restless that it is hard to sit still: 0 = Not at all Becoming easily annoyed or irritable: 0 = Not at all Feeling afraid as if something awful might happen: 0 = Not at all Total KASI-7 score (0-4 normal; 5-9 mild; 10-14 moderate; 15-21 severe): 0 Source: Developed by Drs. Antoine Patel, Narcisa Isaacs, Rico Daugherty and colleagues, with an educational cristal from [employer]. Review of Systems Const Denies chills, Denies fatigue, Denies fever(s) and Denies poor appetite Eyes Denies no additional complaints ENT Reports Normal hearing present Card Denies chest pain, Denies syncope, Denies rapid heart rate and Denies dyspnea Resp Denies cough and Denies dyspnea GI Denies change in stool character, Denies constipation, Denies diarrhea, Denies nausea and Denies vomiting Denies dysuria, Denies urinary frequency and Denies urinary urgency Neuro Reports Normal hearing present, Denies confusion and Denies syncope Psych Denies confusion Endo Denies fatigue Physical exam (Primary Care) Vital Signs: Last Vital Signs Pulse 83 05/30/23 10:55 BP 152/94 H 05/30/23 10:55 Pulse Ox 99 05/30/23 10:55 Oxygen Delivery Method Room Air 05/30/23 10:55 BMI result Body Mass Index 26.4 Tobacco/Smoking Status: Tobacco use Status Tobacco use date assessed 05/30/23 05/30/23 10:57 Patient Tobacco Use Status Former Tobacco user 05/30/23 10:57 Tobacco use type Cigarette 05/30/23 10:57 e-Cigarette/Vaping Use Never Used 05/30/23 10:57 PHQ-9: PHQ-9 Score PHQ-9: Total score 0 05/30/23 11:37 Depression Screening Interpretation: Negative Thrive Assessment: Date of Thrive Assessment Date Thrive assessed 05/30/23 05/30/23 10:57 Const General: No confusion Orientation/consciousness: No confusion HENMT Head: Yes normocephalic and Yes atraumatic Eyes Conjunctivae: conjunctivae normal Chest Chest palpation & inspection: normal inspection of the chest Resp Effort & Inspection: normal respiratory effort Auscultation: clear to auscultation bilaterally, no crackles, no rhonchi and no wheezes Cardio Rate: regular rate Rhythm: regular rhythm Heart sounds: S1 normal heart sound present and S2 normal heart sound present GI Inspection: Yes normal to inspection Neuro General: No confusion Cranial nerves: Yes Normal hearing present Extrem General: No edema Assessment and Plan Assessment & Plan (1) Hypertension: Code(s): I10 - Essential (primary) hypertension Plan: Continue on amlodipine 10mg daily. Follow low salt diet and exercise. b/p above goal in office today, however patient reports he has not yet taking his amlodipine today. Patient advised to take his b/p medicine when he gets home. (2) Hypercholesterolemia: Code(s): E78.00 - Pure hypercholesterolemia, unspecified Plan: Continue on atorvastatin 80mg daily. Follow low cholesterol diet. (3) CVA (cerebral vascular accident): Comment: November 2018. No residual Code(s): I63.9 - Cerebral infarction, unspecified Plan: Continue on Coumadin, statin and maintian adequate b/p control for stroke prevention. Plan Follow up in 6 months for complete physical exam Coding Level of Care Code Est Pt Level 3 (67956) Diagnoses Hypertension I10 Hypercholesterolemia E78.00 CVA (cerebral vascular accident) I63.9
== END 2023-05-30 11:47 | disposition home or self-care (01) ==
PROVIDERS: PCP Internal Medicine; Visit Provider Nurse Practitioner Family
DX: I10 Essential (primary) hypertension (principal); E78.00 Pure hypercholesterolemia, unspecified; Z86.73 Personal history of transient ischemic attack (TIA), and cerebral infarction without residual deficits
CPT/HCPCS: 99213

== ENCOUNTER 2023-06-20 08:18 | Outpatient (AMB) | payer BC, SELFPAY ==
[2023-06-20 08:39] LABS: Prothrombin Time Whole Bld POC 31.1 sec (11.1-13.5); ~PT, ~INR - Anti Coag Clinic 2.6 (0.9-1.1)
--- NOTE | 2023-06-20 08:46 | MHC.OFFVISCO ---
Intake Intake Visit Reasons: Anticoagulation Allergies amoxicillin [Augmentin] Allergy (Unknown, Verified 06/20/23 08:34) RASH clavulanic acid [Augmentin] Allergy (Unknown, Verified 06/20/23 08:34) RASH penicillin V Allergy (Unknown, Verified 06/20/23 08:34) rash augmentin Allergy (Unknown, Uncoded 06/20/23 08:34) hives, swelling Clenbuterol HCl Allergy (Unknown, Uncoded 06/20/23 08:34) swelling Clindamycin HCl Allergy (Unknown, Uncoded 06/20/23 08:34) swelling Medication List - Last Reconciled 06/20/23 by Jelena Diaz, RN amlodipine 5 mg PO DAILY 90 days atorvastatin 80 mg PO BEDTIME 90 days cyanocobalamin (vitamin B-12) 1,000 mcg PO DAILY warfarin 5 mg See Protocol PO DAILY Nursing Note INR: 2.6 in therapeutic range Medications and supplements reviewed BROKE TOE RIGHT PINKY TOE - ENC XRAY AND SPLINTING BUT HE REFUSED, SLIGHTLY BLACK AND BLUE . NOT TAKING ANYTHING FOR IT Denies any signs and symptoms of bleeding or clotting. Bleeding, bruising, clotting discussed Nutritional guidance given Dose: KEEP SAME 5MG X 3 DAYS/ 7.5MG X 4 DAYS F/U INR: 1 MONTH Patient verbalizes understanding of instructions given Anti-Coag Initial Assessment Social Hx Patient Tobacco Use Status: Former Tobacco user Tobacco use type: Cigarette Coding Level of Care Code Est Patient Level 1 Diagnoses Current use of anticoagulant therapy Z79.01 Assessment & Plan Assessment & Plan (1) Current use of anticoagulant therapy: Code(s): Z79.01 - [facility] (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
== END 2023-06-20 08:48 | disposition home or self-care (01) ==
LOC: HO.ACS 08:18
PROVIDERS: PCP Internal Medicine; Visit Provider Internal Medicine
DX: Z79.01 Long term (current) use of anticoagulants (principal)

== ENCOUNTER → 2023-06-20 08:18 | Outpatient (BNVA) | payer BC, SELFPAY | PROVIDERS: PCP Internal Medicine; Visit Provider Internal Medicine | DX: Z86.73 Personal history of transient ischemic attack (TIA), and cerebral infarction without residual deficits (principal); Z51.81 Encounter for therapeutic drug level monitoring; Z79.01 Long term (current) use of anticoagulants | CPT/HCPCS: 85610; 99211 ==

== ENCOUNTER 2023-07-17 15:43 | Outpatient (AMB) | payer BC, SELFPAY ==
[2023-07-17 15:49] LABS: Prothrombin Time Whole Bld POC 32.2 sec (11.1-13.5); ~PT, ~INR - Anti Coag Clinic 2.7 (0.9-1.1)
--- NOTE | 2023-07-17 15:50 | MHC.OFFVISCO ---
Intake Intake Visit Reasons: Anticoagulation Allergies amoxicillin [Augmentin] Allergy (Unknown, Verified 07/17/23 15:43) RASH clavulanic acid [Augmentin] Allergy (Unknown, Verified 07/17/23 15:43) RASH penicillin V Allergy (Unknown, Verified 07/17/23 15:43) rash augmentin Allergy (Unknown, Uncoded 07/17/23 15:43) hives, swelling Clenbuterol HCl Allergy (Unknown, Uncoded 07/17/23 15:43) swelling Clindamycin HCl Allergy (Unknown, Uncoded 07/17/23 15:43) swelling Medication List - Last Reconciled 07/17/23 by Marina Kurtz RN amlodipine 5 mg PO DAILY 90 days atorvastatin 80 mg PO BEDTIME 90 days cyanocobalamin (vitamin B-12) 1,000 mcg PO DAILY warfarin 5 mg See Protocol PO DAILY Nursing Note Amb to [facility] feeling well Medications and supplements reviewed No changes in health, diet, medications, or supplements Denies any unusual signs and symptoms of bruising, bleeding Denies any new Chest pain, SOB, or clotting INR: 2.7 in therapeutic range Nutritional guidance given: balance greens and reds in diet Dose: continue usual dosing;5mg x 3 days and 7.5mg x 4 days F/U INR: 4 weeks Patient verbalizes understanding of instructions given with accurate read back/ teach back of dosing Anti-Coag Initial Assessment Social Hx Patient Tobacco Use Status: Former Tobacco user Tobacco use type: Cigarette Coding Level of Care Code Est Patient Level 1 Diagnoses Current use of anticoagulant therapy Z79.01 Time Spent (min) 15 Results AMB INR Fingerstick AMB INR Fingerstick 2.7 Last Edit by Marina Kurtz RN on 07/17/23 15:49 acelis Assessment & Plan Assessment & Plan (1) Current use of anticoagulant therapy: Code(s): Z79.01 - 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
== END 2023-07-17 15:52 | disposition home or self-care (01) ==
LOC: HO.ACS 15:43
PROVIDERS: PCP Internal Medicine; Visit Provider Internal Medicine
DX: Z79.01 Long term (current) use of anticoagulants (principal)

== ENCOUNTER → 2023-07-17 15:43 | Outpatient (BNVA) | payer BC, SELFPAY | PROVIDERS: PCP Internal Medicine; Visit Provider Internal Medicine | DX: Z86.73 Personal history of transient ischemic attack (TIA), and cerebral infarction without residual deficits (principal); Z51.81 Encounter for therapeutic drug level monitoring; Z79.01 Long term (current) use of anticoagulants | CPT/HCPCS: 85610; 99211 ==

== ENCOUNTER 2023-08-15 15:46 | Outpatient (AMB) | payer BC, SELFPAY ==
--- NOTE | 2023-08-15 15:51 | MHC.OFFVISCO ---
Intake Intake Visit Reasons: Anticoagulation Allergies amoxicillin [Augmentin] Allergy (Unknown, Verified 08/15/23 15:46) RASH clavulanic acid [Augmentin] Allergy (Unknown, Verified 08/15/23 15:46) RASH penicillin V Allergy (Unknown, Verified 08/15/23 15:46) rash augmentin Allergy (Unknown, Uncoded 08/15/23 15:46) hives, swelling Clenbuterol HCl Allergy (Unknown, Uncoded 08/15/23 15:46) swelling Clindamycin HCl Allergy (Unknown, Uncoded 08/15/23 15:46) swelling Medication List - Last Reconciled 08/15/23 by Jelena Diaz RN amlodipine 5 mg PO DAILY 90 days atorvastatin 80 mg PO BEDTIME 90 days cyanocobalamin (vitamin B-12) 1,000 mcg PO DAILY warfarin 5 mg See Protocol PO DAILY Nursing Note INR: 2.6 in therapeutic range- HAS A COLD THAT HE IS RECOVERING FROM Medications and supplements reviewed No changes in health, diet, medications, or supplements, Denies any signs and symptoms of bleeding or bruising or clotting. Bleeding, bruising, clotting discussed Nutritional guidance given Dose: 5MG X 3 DAYS/ 7.5MG X 4 DAYS F/U INR: 4 WEEKS Patient verbalizes understanding of instructions given Anti-Coag Initial Assessment Social Hx Patient Tobacco Use Status: Former Tobacco user Tobacco use type: Cigarette Coding Level of Care Code Est Patient Level 1 Diagnoses Current use of anticoagulant therapy Z79.01 Results AMB INR Fingerstick AMB INR Fingerstick 2.6 Last Edit by Jelena Diaz RN on 08/15/23 15:55 MANUAL ENTRY DUE TO INTERFACE FAILURE Assessment & Plan Assessment & Plan (1) Current use of anticoagulant therapy: Code(s): Z79.01 - [facility] (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
[2023-08-15 15:56] LABS: Prothrombin Time Whole Bld POC 30.9 sec (11.1-13.5); ~PT, ~INR - Anti Coag Clinic 2.6 (0.9-1.1)
== END 2023-08-15 15:59 | disposition home or self-care (01) ==
LOC: HO.ACS 15:46
PROVIDERS: PCP Internal Medicine; Visit Provider Internal Medicine
DX: Z79.01 Long term (current) use of anticoagulants (principal)

== ENCOUNTER → 2023-08-15 15:46 | Outpatient (BNVA) | payer BC, SELFPAY | PROVIDERS: PCP Internal Medicine; Visit Provider Internal Medicine | DX: Z86.73 Personal history of transient ischemic attack (TIA), and cerebral infarction without residual deficits (principal); Z51.81 Encounter for therapeutic drug level monitoring; Z79.01 Long term (current) use of anticoagulants | CPT/HCPCS: 85610; 99211 ==

== ENCOUNTER 2023-09-11 15:40 | Outpatient (AMB) | payer BC, SELFPAY ==
--- NOTE | 2023-09-11 15:50 | MHC.OFFVISCO ---
Intake Intake Visit Reasons: Anticoagulation Allergies amoxicillin [Augmentin] Allergy (Unknown, Verified 09/11/23 15:42) RASH clavulanic acid [Augmentin] Allergy (Unknown, Verified 09/11/23 15:42) RASH penicillin V Allergy (Unknown, Verified 09/11/23 15:42) rash augmentin Allergy (Unknown, Uncoded 09/11/23 15:42) hives, swelling Clenbuterol HCl Allergy (Unknown, Uncoded 09/11/23 15:42) swelling Clindamycin HCl Allergy (Unknown, Uncoded 09/11/23 15:42) swelling Medication List - Last Reconciled 09/11/23 by Jelena Diaz RN amlodipine 5 mg PO DAILY 90 days atorvastatin 80 mg PO BEDTIME 90 days cyanocobalamin (vitamin B-12) 1,000 mcg PO DAILY warfarin 5 mg See Protocol PO DAILY Nursing Note INR: 2.4 in therapeutic range Medications and supplements reviewed No changes in health, diet, medications, or supplements, Denies any signs and symptoms of bleeding or bruising or clotting. 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
[2023-09-12 09:36] LABS: Prothrombin Time Whole Bld POC 28.6 sec (11.1-13.5); ~PT, ~INR - Anti Coag Clinic 2.4 (0.9-1.1)
== END 2023-09-11 15:52 | disposition home or self-care (01) ==
LOC: HO.ACS 15:40
PROVIDERS: PCP Internal Medicine; Visit Provider Internal Medicine
DX: Z79.01 Long term (current) use of anticoagulants (principal)

== ENCOUNTER → 2023-09-11 15:40 | Outpatient (BNVA) | payer BC, SELFPAY | PROVIDERS: PCP Internal Medicine; Visit Provider Internal Medicine | DX: I69.90 Unspecified sequelae of unspecified cerebrovascular disease (principal); Z51.81 Encounter for therapeutic drug level monitoring; Z79.01 Long term (current) use of anticoagulants | CPT/HCPCS: 85610; 99211 ==

== ENCOUNTER 2023-10-10 10:46 | Outpatient (AMB) | payer BC, SELFPAY ==
--- NOTE | 2023-10-10 11:00 | MHC.OFFVISCO ---
Intake Intake Visit Reasons: Anticoagulation Allergies amoxicillin [Augmentin] Allergy (Unknown, Verified 10/10/23 10:56) RASH clavulanic acid [Augmentin] Allergy (Unknown, Verified 10/10/23 10:56) RASH penicillin V Allergy (Unknown, Verified 10/10/23 10:56) rash augmentin Allergy (Unknown, Uncoded 10/10/23 10:56) hives, swelling Clenbuterol HCl Allergy (Unknown, Uncoded 10/10/23 10:56) swelling Clindamycin HCl Allergy (Unknown, Uncoded 10/10/23 10:56) swelling Medication List - Last Reconciled 10/10/23 by Orquidea Sorto, RN amlodipine 5 mg PO DAILY 90 days atorvastatin 80 mg PO BEDTIME 90 days cyanocobalamin (vitamin B-12) 1,000 mcg PO DAILY warfarin 5 mg See Protocol PO DAILY Nursing Note INR 3.1-?? out of therapeutic range of 2-3 Medications and supplements reviewed Patient status: pt s/p fall, denies hit head, bruising bilat knees and left hip, pt does not feel he needs xrays Medications or supplements: no changes, taking tylenol prn Diet: same Denies any signs and symptoms of bleeding or clotting or unusual bruising Bleeding, bruising, clotting discussed Nutritional guidance given: eat greens to lower inr Dose: 5mg x 3, 7.5mg x 4 F/U INR Date : pt req 3 weeks?? Patient verbalizing understanding of instructions given. Anti-Coag Initial Assessment Social Hx Patient Tobacco Use Status: Former Tobacco user Tobacco use type: Cigarette Coding Level of Care Code Est Patient Level 1 Diagnoses Current use of anticoagulant therapy Z79.01 Assessment & Plan Assessment & Plan (1) Current use of anticoagulant therapy: Code(s): Z79.01 - intermediate (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
[2023-10-10 11:01] LABS: Prothrombin Time Whole Bld POC 37.5 sec (11.1-13.5); ~PT, ~INR - Anti Coag Clinic 3.1 (0.9-1.1)
== END 2023-10-10 11:07 | disposition home or self-care (01) ==
LOC: HO.ACS 10:46
PROVIDERS: PCP Internal Medicine; Visit Provider Internal Medicine
DX: Z79.01 Long term (current) use of anticoagulants (principal)

== ENCOUNTER → 2023-10-10 10:46 | Outpatient (BNVA) | payer BC, SELFPAY | PROVIDERS: PCP Internal Medicine; Visit Provider Internal Medicine | DX: Z86.73 Personal history of transient ischemic attack (TIA), and cerebral infarction without residual deficits (principal); Z51.81 Encounter for therapeutic drug level monitoring; Z79.01 Long term (current) use of anticoagulants | CPT/HCPCS: 85610; 99211 ==

== ENCOUNTER 2023-10-24 13:47 | Outpatient (AMB) | payer BC, SELFPAY ==
--- NOTE | 2023-10-24 13:56 | MHC.OFFVISCO ---
Intake Intake Visit Reasons: Anticoagulation Allergies amoxicillin [Augmentin] Allergy (Unknown, Verified 10/24/23 13:51) RASH clavulanic acid [Augmentin] Allergy (Unknown, Verified 10/24/23 13:51) RASH penicillin V Allergy (Unknown, Verified 10/10/23 10:56) rash augmentin Allergy (Unknown, Uncoded 10/24/23 13:51) hives, swelling Clenbuterol HCl Allergy (Unknown, Uncoded 10/24/23 13:51) swelling Clindamycin HCl Allergy (Unknown, Uncoded 10/10/23 10:56) swelling Medication List - Last Reconciled 10/24/23 by Orquidea Sorto, RN amlodipine 5 mg PO DAILY 90 days atorvastatin 80 mg PO BEDTIME 90 days cyanocobalamin (vitamin B-12) 1,000 mcg PO DAILY warfarin 5 mg See Protocol PO DAILY Nursing Note INR:2.5- in therapeutic range of 2-3 Medications and supplements reviewed- no changes No changes in health, diet, medications, or supplements, Denies any signs and symptoms of bleeding or bruising or clotting. Bleeding, bruising, clotting discussed Nutritional guidance given Dose: 5mg x 3, 7.5mg x 4 F/U INR: pt req 4 weeks Patient verbalizes understanding of instructions given Anti-Coag Initial Assessment Social Hx Patient Tobacco Use Status: Former Tobacco user Tobacco use type: Cigarette Coding Level of Care Code Est Patient Level 1 Diagnoses Current use of anticoagulant therapy Z79.01 Assessment & Plan Assessment & Plan (1) Current use of anticoagulant therapy: Code(s): Z79.01 - alf (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
[2023-10-24 13:57] LABS: Prothrombin Time Whole Bld POC 30.2 sec (11.1-13.5); ~PT, ~INR - Anti Coag Clinic 2.5 (0.9-1.1)
== END 2023-10-24 14:12 | disposition home or self-care (01) ==
LOC: HO.ACS 13:47
PROVIDERS: PCP Internal Medicine; Visit Provider Internal Medicine
DX: Z79.01 Long term (current) use of anticoagulants (principal)

== ENCOUNTER → 2023-10-24 13:47 | Outpatient (BNVA) | payer BC, SELFPAY | PROVIDERS: PCP Internal Medicine; Visit Provider Internal Medicine | DX: Z86.73 Personal history of transient ischemic attack (TIA), and cerebral infarction without residual deficits (principal); Z51.81 Encounter for therapeutic drug level monitoring; Z79.01 Long term (current) use of anticoagulants | CPT/HCPCS: 85610; 99211 ==

== ENCOUNTER 2023-11-21 11:16 | Outpatient (AMB) | payer BC, SELFPAY ==
--- NOTE | 2023-11-21 11:32 | MHC.OFFVISCO ---
Intake Intake Visit Reasons: Anticoagulation Allergies amoxicillin [Augmentin] Allergy (Unknown, Verified 11/21/23 11:28) RASH clavulanic acid [Augmentin] Allergy (Unknown, Verified 11/21/23 11:28) RASH penicillin V Allergy (Unknown, Verified 11/21/23 11:28) rash augmentin Allergy (Unknown, Uncoded 11/21/23 11:28) hives, swelling Clenbuterol HCl Allergy (Unknown, Uncoded 11/21/23 11:28) swelling Clindamycin HCl Allergy (Unknown, Uncoded 11/21/23 11:28) swelling Medication List - Last Reconciled 11/21/23 by Orquidea Sorto RN amlodipine 5 mg PO DAILY 90 days atorvastatin 80 mg PO BEDTIME 90 days cyanocobalamin (vitamin B-12) 1,000 mcg PO DAILY warfarin 5 mg See Protocol PO DAILY Nursing Note INR: 2.3- in therapeutic range of 2-3 Medications and supplements reviewed- no changes No changes in health, diet, medications, or supplements, Denies any signs and symptoms of bleeding or bruising or clotting. Bleeding, bruising, clotting discussed Nutritional guidance given Dose: 5mg x 3, 7.5mg x 4 F/U INR: 4 weeks Patient verbalizes understanding of instructions given pt in process of moving- change of address noted Anti-Coag Initial Assessment Social Hx Patient Tobacco Use Status: Former Tobacco user Tobacco use type: Cigarette Coding Level of Care Code Est Patient Level 1 Diagnoses Current use of anticoagulant therapy Z79.01 Results AMB INR Fingerstick AMB INR Fingerstick 2.3 Last Edit by Orquidea Sorto RN on 11/21/23 11:33 Assessment & Plan Assessment & Plan (1) Current use of anticoagulant therapy: 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
[2023-11-21 11:33] LABS: ~PT, ~INR - Anti Coag Clinic 2.3 (0.9-1.1)
== END 2023-11-21 11:39 | disposition home or self-care (01) ==
LOC: HO.ACS 11:16
PROVIDERS: PCP Internal Medicine; Visit Provider Internal Medicine
DX: Z79.01 Long term (current) use of anticoagulants (principal)

== ENCOUNTER → 2023-11-21 11:16 | Outpatient (BNVA) | payer BC, SELFPAY | PROVIDERS: PCP Internal Medicine; Visit Provider Internal Medicine | DX: Z86.73 Personal history of transient ischemic attack (TIA), and cerebral infarction without residual deficits (principal); Z51.81 Encounter for therapeutic drug level monitoring; Z79.01 Long term (current) use of anticoagulants | CPT/HCPCS: 85610; 99211 ==

== ENCOUNTER 2023-12-19 11:11 | Outpatient (AMB) | payer BC, SELFPAY ==
--- NOTE | 2023-12-19 11:40 | MHC.OFFVISCO ---
Intake Intake Visit Reasons: Anticoagulation Allergies amoxicillin [Augmentin] Allergy (Unknown, Verified 12/19/23 11:36) RASH clavulanic acid [Augmentin] Allergy (Unknown, Verified 12/19/23 11:36) RASH penicillin V Allergy (Unknown, Verified 12/19/23 11:36) rash augmentin Allergy (Unknown, Uncoded 12/19/23 11:36) hives, swelling Clenbuterol HCl Allergy (Unknown, Uncoded 12/19/23 11:36) swelling Clindamycin HCl Allergy (Unknown, Uncoded 12/19/23 11:36) swelling Medication List - Last Reconciled 12/19/23 by Orquidea Sorto RN amlodipine 5 mg PO DAILY 90 days atorvastatin 80 mg PO BEDTIME 90 days cyanocobalamin (vitamin B-12) 1,000 mcg PO DAILY warfarin 5 mg See Protocol PO DAILY Nursing Note INR: 2.3- in therapeutic range of 2-3 Medications and supplements reviewed- no changes No changes in health, diet, medications, or supplements, Denies any signs and symptoms of bleeding or bruising or clotting. Bleeding, bruising, clotting discussed Nutritional guidance given Dose: 5mg x 3, 7.5mg x 4 F/U INR: 4 weeks Patient verbalizes understanding of instructions given Anti-Coag Initial Assessment Social Hx Patient Tobacco Use Status: Former Tobacco user Tobacco use type: Cigarette Coding Level of Care Code Est Patient Level 1 Diagnoses Current use of anticoagulant therapy Z79.01 Results AMB INR Fingerstick AMB INR Fingerstick 2.7 Last Edit by Orquidea Sorto RN on 12/19/23 11:42 Assessment & Plan Assessment & Plan (1) Current use of anticoagulant therapy: Code(s): Z79.01 - [facility] (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
[2023-12-19 11:42] LABS: Prothrombin Time Whole Bld POC 32.6 sec (11.1-13.5); ~PT, ~INR - Anti Coag Clinic 2.7 (0.9-1.1)
== END 2023-12-19 12:03 | disposition home or self-care (01) ==
LOC: HO.ACS 11:11
PROVIDERS: PCP Internal Medicine; Visit Provider Internal Medicine
DX: Z79.01 Long term (current) use of anticoagulants (principal)

== ENCOUNTER → 2023-12-19 11:11 | Outpatient (BNVA) | payer BC, SELFPAY | PROVIDERS: PCP Internal Medicine; Visit Provider Internal Medicine | DX: Z86.73 Personal history of transient ischemic attack (TIA), and cerebral infarction without residual deficits (principal); Z51.81 Encounter for therapeutic drug level monitoring; Z79.01 Long term (current) use of anticoagulants | CPT/HCPCS: 85610; 99211 ==

== ENCOUNTER 2024-01-16 15:47 | Outpatient (AMB) | payer BC, SELFPAY ==
[2024-01-16 15:53] LABS: Prothrombin Time Whole Bld POC 30.2 sec (11.1-13.5); ~PT, ~INR - Anti Coag Clinic 2.5 (0.9-1.1)
--- NOTE | 2024-01-16 15:58 | MHC.OFFVISCO ---
Intake Intake Visit Reasons: Anticoagulation Allergies amoxicillin [Augmentin] Allergy (Unknown, Verified 01/16/24 15:48) RASH clavulanic acid [Augmentin] Allergy (Unknown, Verified 01/16/24 15:48) RASH penicillin V Allergy (Unknown, Verified 01/16/24 15:48) rash augmentin Allergy (Unknown, Uncoded 01/16/24 15:48) hives, swelling Clenbuterol HCl Allergy (Unknown, Uncoded 01/16/24 15:48) swelling Clindamycin HCl Allergy (Unknown, Uncoded 01/16/24 15:48) swelling Medication List - Last Reconciled 01/16/24 by Jelena Diaz RN amlodipine 5 mg PO DAILY 90 days atorvastatin 80 mg PO BEDTIME 90 days cyanocobalamin (vitamin B-12) 1,000 mcg PO DAILY warfarin 5 mg See Protocol PO DAILY Nursing Note INR: 2.5 in therapeutic range Medications and supplements reviewed No changes in health, diet, medications, or supplements, Denies any signs and symptoms of bleeding or bruising or clotting. Bleeding, bruising, clotting discussed Nutritional guidance given Dose: 5MG X 3 DAYS/ 7.5MG X 4 DAYS F/U INR: 4 WEEKS Patient verbalizes understanding of instructions given Anti-Coag Initial Assessment Social Hx Patient Tobacco Use Status: Former Tobacco user Tobacco use type: Cigarette Questionnaires HAS-BLED Does the patient had uncontrolled Hypertension?: No Does the patient have renal disease?: No Does the patient have liver disease?: No Does the patient have a history of stroke?: Yes Has the patient had major bleeding or predisposition to bleeding?: No Does the patient have labile INRs?: No Is the patient over 65 years of age?: No Is the patient on medications that gives them a predisposition to bleeding?: Yes Does the patient use alcohol?: No HAS-BLED Score: 2 CHADSVASC Age: <65 Gender: Male Does the patient have a history of CHF?: No Does the patient have a history of Hypertension?: Yes Does the patient have a history of Stroke/TIA/Thromboembolism?: Yes Does the patient have a history of Vascular Disease (prior NM, PAD or aortic plaque)?: Yes Does the patient have a history of Diabetes?: No CHADS VACS Score: 4 Joy Prediction Score Rsk VTE Active Cancer: No Previous VTE, excluding superficial vein thrombosis: No Reduced mobility: No Already known Thrombophilic Condition: No With-in last month Trauma and/or Surgery: No Elderly 70 year or older: No Heart and/or Respiratory Failure: No Acute Myocardial infarction and/or Ischemic Stroke: Yes Acute Infection and/or Rheumatologic Disorder: No Obesity (BMI 30 or greater): No Ongoing Hormonal Treatment: No Score: 1 Joy Score less than 4; Low Risk of VTE Joy Score 4 or greater; High Risk of VTE Coding Level of Care Code Est Patient Level 1 Diagnoses Current use of anticoagulant therapy Z79.01 Assessment & Plan Assessment & Plan (1) Current use of anticoagulant therapy: Code(s): Z79.01 - snf (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
== END 2024-01-16 16:02 | disposition home or self-care (01) ==
LOC: HO.ACS 15:47
PROVIDERS: PCP Internal Medicine; Visit Provider Internal Medicine
DX: Z79.01 Long term (current) use of anticoagulants (principal)

== ENCOUNTER → 2024-01-16 15:47 | Outpatient (BNVA) | payer BC, SELFPAY | PROVIDERS: PCP Internal Medicine; Visit Provider Internal Medicine | DX: Z86.73 Personal history of transient ischemic attack (TIA), and cerebral infarction without residual deficits (principal); Z51.81 Encounter for therapeutic drug level monitoring; Z79.01 Long term (current) use of anticoagulants | CPT/HCPCS: 85610; 99211 ==

== ENCOUNTER 2024-02-13 13:04 | Outpatient (AMB) | payer BC, SELFPAY ==
--- NOTE | 2024-02-13 13:10 | MHC.OFFVISCO ---
Intake Intake Visit Reasons: Anticoagulation Allergies amoxicillin [Augmentin] Allergy (Unknown, Verified 02/13/24 13:07) RASH clavulanic acid [Augmentin] Allergy (Unknown, Verified 02/13/24 13:07) RASH penicillin V Allergy (Unknown, Verified 02/13/24 13:07) rash augmentin Allergy (Unknown, Uncoded 02/13/24 13:07) hives, swelling Clenbuterol HCl Allergy (Unknown, Uncoded 02/13/24 13:07) swelling Clindamycin HCl Allergy (Unknown, Uncoded 02/13/24 13:07) swelling Medication List - Last Reconciled 02/13/24 by Orquidea Sorto RN amlodipine 5 mg PO DAILY 90 days atorvastatin 80 mg PO BEDTIME 90 days cyanocobalamin (vitamin B-12) 1,000 mcg PO DAILY warfarin 5 mg See Protocol PO DAILY Nursing Note INR: 2.8- in therapeutic range of 2-3 Medications and supplements reviewed- no changes No changes in health, diet, medications, or supplements, Denies any signs and symptoms of bleeding or bruising or clotting. Bleeding, bruising, clotting discussed Nutritional guidance given Dose: 5mg x 3, 7.5mg x 4 F/U INR: 4 weeks Patient verbalizes understanding of instructions given Anti-Coag Initial Assessment Social Hx Patient Tobacco Use Status: Former Tobacco user Tobacco use type: Cigarette Coding Level of Care Code Est Patient Level 1 Diagnoses Current use of anticoagulant therapy Z79.01 Results AMB INR Fingerstick AMB INR Fingerstick 2.8 Last Edit by Orquidea Sorto RN on 02/13/24 13:12 Assessment & Plan Assessment & Plan (1) Current use of anticoagulant therapy: Code(s): Z79.01 - snf (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
[2024-02-13 13:12] LABS: Prothrombin Time Whole Bld POC 33.3 sec (11.1-13.5); ~PT, ~INR - Anti Coag Clinic 2.8 (0.9-1.1)
== END 2024-02-13 13:17 | disposition home or self-care (01) ==
LOC: HO.ACS 13:04
PROVIDERS: PCP Internal Medicine; Visit Provider Internal Medicine
DX: Z79.01 Long term (current) use of anticoagulants (principal)

== ENCOUNTER → 2024-02-13 13:04 | Outpatient (BNVA) | payer BC, SELFPAY | PROVIDERS: PCP Internal Medicine; Visit Provider Internal Medicine | DX: Z86.73 Personal history of transient ischemic attack (TIA), and cerebral infarction without residual deficits (principal); Z51.81 Encounter for therapeutic drug level monitoring; Z79.01 Long term (current) use of anticoagulants | CPT/HCPCS: 85610; 99211 ==

== ENCOUNTER 2024-03-12 15:44 | Outpatient (AMB) | payer BC, SELFPAY ==
[2024-03-12 15:50] LABS: Prothrombin Time Whole Bld POC 46.5 sec (11.1-13.5); ~PT, ~INR - Anti Coag Clinic 3.9 (0.9-1.1)
--- NOTE | 2024-03-12 15:59 | MHC.OFFVISCO ---
Intake Intake Visit Reasons: Anticoagulation Allergies amoxicillin [Augmentin] Allergy (Unknown, Verified 03/12/24 15:44) RASH clavulanic acid [Augmentin] Allergy (Unknown, Verified 03/12/24 15:44) RASH penicillin V Allergy (Unknown, Verified 03/12/24 15:44) rash augmentin Allergy (Unknown, Uncoded 03/12/24 15:44) hives, swelling Clenbuterol HCl Allergy (Unknown, Uncoded 03/12/24 15:44) swelling Clindamycin HCl Allergy (Unknown, Uncoded 03/12/24 15:44) swelling Medication List - Last Reconciled 03/12/24 by Jelena Diaz RN amlodipine 5 mg PO DAILY 90 days atorvastatin 80 mg PO BEDTIME 90 days cyanocobalamin (vitamin B-12) 1,000 mcg PO DAILY warfarin 5 mg See Protocol PO DAILY Nursing Note INR 3.9 out of therapeutic range Medications and supplements reviewed Patient status: Pt was taking more tylenol than usual for hand ahce - arthritis type ache per haps from over use at worl Medications or supplements: no changes Diet: good Denies any signs and symptoms of bleeding or clotting or unusual bruising Bleeding, bruising, clotting discussed Nutritional guidance given: eat greens today and tomorrow - also instructed when pt takes more tylenol than usual to eat more greens during the week Dose: already took today's dose will decrease tomorrow s dose from 7.5 mg to 2.5mg x 1 day. F/U INR Date : 3 weeks per pt request?? Patient verbalizing understanding of instructions given. 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
== END 2024-03-12 16:02 | disposition home or self-care (01) ==
LOC: HO.ACS 15:44
PROVIDERS: PCP Internal Medicine; Visit Provider Internal Medicine
DX: Z79.01 Long term (current) use of anticoagulants (principal)

== ENCOUNTER → 2024-03-12 15:44 | Outpatient (BNVA) | payer BC, SELFPAY | PROVIDERS: PCP Internal Medicine; Visit Provider Internal Medicine | DX: Z86.73 Personal history of transient ischemic attack (TIA), and cerebral infarction without residual deficits (principal); Z51.81 Encounter for therapeutic drug level monitoring; Z79.01 Long term (current) use of anticoagulants | CPT/HCPCS: 85610; 99211 ==

== ENCOUNTER 2024-04-02 15:41 | Outpatient (AMB) | payer BC, SELFPAY ==
[2024-04-02 15:50] LABS: ~PT, ~INR - Anti Coag Clinic 3.2 (0.9-1.1)
--- NOTE | 2024-04-02 15:53 | MHC.OFFVISCO ---
Intake Intake Visit Reasons: Anticoagulation Allergies amoxicillin [Augmentin] Allergy (Unknown, Verified 04/02/24 15:42) RASH clavulanic acid [Augmentin] Allergy (Unknown, Verified 04/02/24 15:42) RASH penicillin V Allergy (Unknown, Verified 04/02/24 15:42) rash augmentin Allergy (Unknown, Uncoded 04/02/24 15:42) hives, swelling Clenbuterol HCl Allergy (Unknown, Uncoded 04/02/24 15:42) swelling Clindamycin HCl Allergy (Unknown, Uncoded 04/02/24 15:42) swelling Medication List - Last Reconciled 04/02/24 by Marina Sylvester RN amlodipine 5 mg PO DAILY 90 days atorvastatin 80 mg PO BEDTIME 90 days cyanocobalamin (vitamin B-12) 1,000 mcg PO DAILY warfarin 5 mg See Protocol PO DAILY Nursing Note INR 3.2?out of therapeutic range of 2-3 Medications and supplements reviewed: no changes Patient status: well Diet: usual diet for pt Denies any signs and symptoms of bleeding or clotting or unusual bruising Bleeding, bruising, clotting discussed Nutritional guidance given:no greens today Dose: 5mg X3 days and 7.5mg X 4 days F/U INR Date : pt requests 4 weeks?? Patient verbalizing understanding of instructions given. 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
== END 2024-04-02 16:03 | disposition home or self-care (01) ==
LOC: HO.ACS 15:41
PROVIDERS: PCP Internal Medicine; Visit Provider Internal Medicine
DX: Z79.01 Long term (current) use of anticoagulants (principal)

== ENCOUNTER → 2024-04-02 15:41 | Outpatient (BNVA) | payer BC, SELFPAY | PROVIDERS: PCP Internal Medicine; Visit Provider Internal Medicine | DX: Z86.73 Personal history of transient ischemic attack (TIA), and cerebral infarction without residual deficits (principal); Z51.81 Encounter for therapeutic drug level monitoring; Z79.01 Long term (current) use of anticoagulants | CPT/HCPCS: 85610; 99211 ==

== ENCOUNTER 2024-04-30 15:39 | Outpatient (AMB) | payer BC, SELFPAY ==
[2024-04-30 15:45] LABS: Prothrombin Time Whole Bld POC 34.1 sec (11.1-13.5); ~PT, ~INR - Anti Coag Clinic 2.8 (0.9-1.1)
--- NOTE | 2024-04-30 15:50 | MHC.OFFVISCO ---
Intake Intake Visit Reasons: Anticoagulation Allergies amoxicillin [Augmentin] Allergy (Unknown, Verified 04/30/24 15:40) RASH clavulanic acid [Augmentin] Allergy (Unknown, Verified 04/30/24 15:40) RASH penicillin V Allergy (Unknown, Verified 04/30/24 15:40) rash augmentin Allergy (Unknown, Uncoded 04/30/24 15:40) hives, swelling Clenbuterol HCl Allergy (Unknown, Uncoded 04/30/24 15:40) swelling Clindamycin HCl Allergy (Unknown, Uncoded 04/30/24 15:40) swelling Medication List - Last Reconciled 04/30/24 by Jelena Diaz RN amlodipine 5 mg PO DAILY 90 days atorvastatin 80 mg PO BEDTIME 90 days cyanocobalamin (vitamin B-12) 1,000 mcg PO DAILY warfarin 5 mg See Protocol PO DAILY Nursing Note INR: 2.8 in therapeutic range Medications and supplements reviewed No changes in health, diet, medications, or supplements, Denies any signs and symptoms of bleeding or bruising or clotting. 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
== END 2024-04-30 15:52 | disposition home or self-care (01) ==
LOC: HO.ACS 15:39
PROVIDERS: PCP Internal Medicine; Visit Provider Internal Medicine
DX: Z79.01 Long term (current) use of anticoagulants (principal)

== ENCOUNTER → 2024-04-30 15:39 | Outpatient (BNVA) | payer BC, SELFPAY | PROVIDERS: PCP Internal Medicine; Visit Provider Internal Medicine | DX: Z86.73 Personal history of transient ischemic attack (TIA), and cerebral infarction without residual deficits (principal); Z51.81 Encounter for therapeutic drug level monitoring; Z79.01 Long term (current) use of anticoagulants | CPT/HCPCS: 85610; 99211 ==

== ENCOUNTER 2024-05-28 08:19 | Outpatient (AMB) | payer BC, SELFPAY ==
[2024-05-28 08:34] LABS: Prothrombin Time Whole Bld POC 40.4 sec (11.1-13.5); ~PT, ~INR - Anti Coag Clinic 3.4 (0.9-1.1)
--- NOTE | 2024-05-28 08:34 | MHC.OFFVISCO ---
Intake Intake Visit Reasons: Anticoagulation Allergies amoxicillin [Augmentin] Allergy (Unknown, Verified 05/28/24 08:28) RASH clavulanic acid [Augmentin] Allergy (Unknown, Verified 05/28/24 08:28) RASH penicillin V Allergy (Unknown, Verified 05/28/24 08:28) rash augmentin Allergy (Unknown, Uncoded 05/28/24 08:28) hives, swelling Clenbuterol HCl Allergy (Unknown, Uncoded 05/28/24 08:28) swelling Clindamycin HCl Allergy (Unknown, Uncoded 05/28/24 08:28) swelling Medication List - Last Reconciled 05/28/24 by Orquidea Sorto, RN amlodipine 5 mg PO DAILY 90 days atorvastatin 80 mg PO BEDTIME 90 days cyanocobalamin (vitamin B-12) 1,000 mcg PO DAILY warfarin 5 mg See Protocol PO DAILY Nursing Note INR 3.4-?? out of therapeutic range of 2-3 Medications and supplements reviewed Patient status: pt on vacation last week, pt unsure why inr is elev Medications or supplements: no changes Diet: same Denies any signs and symptoms of bleeding or clotting or unusual bruising Bleeding, bruising, clotting discussed Nutritional guidance given: eat greens for 2 days, no reds for 2 days Dose: 2.5mg today then cont reg 5mg x3, 7.5mg x 4 F/U INR Date : pt req 3 weeks?? Patient verbalizing understanding of instructions given. 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
== END 2024-05-28 08:58 | disposition home or self-care (01) ==
LOC: HO.ACS 08:19
PROVIDERS: PCP Internal Medicine; Visit Provider Internal Medicine
DX: Z79.01 Long term (current) use of anticoagulants (principal)

== ENCOUNTER → 2024-05-28 08:19 | Outpatient (BNVA) | payer BC, SELFPAY | PROVIDERS: PCP Internal Medicine; Visit Provider Internal Medicine | DX: Z86.73 Personal history of transient ischemic attack (TIA), and cerebral infarction without residual deficits (principal); Z51.81 Encounter for therapeutic drug level monitoring; Z79.01 Long term (current) use of anticoagulants | CPT/HCPCS: 85610; 99211 ==

== ENCOUNTER 2024-06-18 09:09 | Outpatient (AMB) | payer BC, SELFPAY ==
[2024-06-18 09:17] LABS: Prothrombin Time Whole Bld POC 31.1 sec (11.1-13.5); ~PT, ~INR - Anti Coag Clinic 2.6 (0.9-1.1)
--- NOTE | 2024-06-18 09:21 | MHC.OFFVISCO ---
Intake Intake Visit Reasons: Anticoagulation Allergies amoxicillin [Augmentin] Allergy (Unknown, Verified 06/18/24 09:11) RASH clavulanic acid [Augmentin] Allergy (Unknown, Verified 06/18/24 09:11) RASH penicillin V Allergy (Unknown, Verified 06/18/24 09:11) rash augmentin Allergy (Unknown, Uncoded 05/28/24 08:28) hives, swelling Clenbuterol HCl Allergy (Unknown, Uncoded 05/28/24 08:28) swelling Clindamycin HCl Allergy (Unknown, Uncoded 05/28/24 08:28) swelling Medication List - Last Reconciled 06/18/24 by Edith Collins, RN amlodipine 5 mg PO DAILY 90 days atorvastatin 80 mg PO BEDTIME 90 days cyanocobalamin (vitamin B-12) 1,000 mcg PO DAILY warfarin 5 mg See Protocol PO DAILY Nursing Note NO CP,SOB,DIET/MED CHANGES,FALLS O SX OF BLEEDING. CONTINUE PRESENT DOSE AND FOLLOW-UP IN 4 WEEKS. GOOD UNDERSTANDING OF DOSING INSTR. 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
== END 2024-06-18 09:23 | disposition home or self-care (01) ==
LOC: HO.ACS 09:09
PROVIDERS: PCP Internal Medicine; Visit Provider Internal Medicine
DX: Z79.01 Long term (current) use of anticoagulants (principal)

== ENCOUNTER → 2024-06-18 09:09 | Outpatient (BNVA) | payer BC, SELFPAY | PROVIDERS: PCP Internal Medicine; Visit Provider Internal Medicine | DX: Z86.73 Personal history of transient ischemic attack (TIA), and cerebral infarction without residual deficits (principal); Z51.81 Encounter for therapeutic drug level monitoring; Z79.01 Long term (current) use of anticoagulants | CPT/HCPCS: 85610; 99211 ==

== ENCOUNTER 2024-07-16 10:09 | Outpatient (AMB) | payer BC, SELFPAY ==
--- NOTE | 2024-07-16 10:50 | MHC.OFFVISCO ---
Intake Intake Visit Reasons: Anticoagulation Allergies amoxicillin [Augmentin] Allergy (Unknown, Verified 07/16/24 10:46) RASH clavulanic acid [Augmentin] Allergy (Unknown, Verified 07/16/24 10:46) RASH penicillin V Allergy (Unknown, Verified 07/16/24 10:46) rash augmentin Allergy (Unknown, Uncoded 07/16/24 10:46) hives, swelling Clenbuterol HCl Allergy (Unknown, Uncoded 07/16/24 10:46) swelling Clindamycin HCl Allergy (Unknown, Uncoded 07/16/24 10:46) swelling Medication List - Last Reconciled 07/16/24 by Marina Sylvester, RN amlodipine 5 mg PO DAILY 90 days atorvastatin 80 mg PO BEDTIME 90 days cyanocobalamin (vitamin B-12) 1,000 mcg PO DAILY warfarin 5 mg See Protocol PO DAILY Nursing Note INR: 2.6 in therapeutic range of 2-3 Medications and supplements reviewed No changes in health, diet, medications, or supplements, Denies any signs and symptoms of bleeding or bruising or clotting. 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
[2024-07-19 07:55] LABS: ~PT, ~INR - Anti Coag Clinic 2.6 (0.9-1.1)
== END 2024-07-16 10:54 | disposition home or self-care (01) ==
LOC: HO.ACS 10:09
PROVIDERS: PCP Internal Medicine; Visit Provider Internal Medicine
DX: Z79.01 Long term (current) use of anticoagulants (principal)

== ENCOUNTER → 2024-07-16 10:09 | Outpatient (BNVA) | payer BC, SELFPAY | PROVIDERS: PCP Internal Medicine; Visit Provider Internal Medicine | DX: Z86.73 Personal history of transient ischemic attack (TIA), and cerebral infarction without residual deficits (principal); Z79.01 Long term (current) use of anticoagulants; Z51.81 Encounter for therapeutic drug level monitoring | CPT/HCPCS: 85610; 99211 ==

== ENCOUNTER 2024-08-13 09:11 | Outpatient (AMB) | payer BC, SELFPAY ==
[2024-08-13 09:36] LABS: Prothrombin Time Whole Bld POC 44.5 sec (11.1-13.5); ~PT, ~INR - Anti Coag Clinic 3.7 (0.9-1.1)
--- NOTE | 2024-08-13 09:37 | MHC.OFFVISCO ---
Intake Intake Visit Reasons: Anticoagulation Allergies amoxicillin [Augmentin] Allergy (Unknown, Verified 08/13/24 09:24) RASH clavulanic acid [Augmentin] Allergy (Unknown, Verified 08/13/24 09:24) RASH penicillin V Allergy (Unknown, Verified 08/13/24 09:24) rash augmentin Allergy (Unknown, Uncoded 08/13/24 09:24) hives, swelling Clenbuterol HCl Allergy (Unknown, Uncoded 08/13/24 09:24) swelling Clindamycin HCl Allergy (Unknown, Uncoded 08/13/24 09:24) swelling Medication List - Last Reconciled 08/13/24 by Marina Sylvester, RN amlodipine 5 mg PO DAILY 90 days atorvastatin 80 mg PO BEDTIME 90 days cyanocobalamin (vitamin B-12) 1,000 mcg PO DAILY warfarin 5 mg See Protocol PO DAILY Nursing Note INR 3.7?out of therapeutic range of 2-3 Medications and supplements reviewed Patient status: well, busy , a little stressed Medications or supplements: no changes Diet: usual diet for pt Denies any signs and symptoms of bleeding or clotting or unusual bruising Bleeding, bruising, clotting discussed Nutritional guidance given: to have a serving of greens today Dose: decrease today's dose to 2.5mg (5mg) and decrease tomorrow's dose to 5mg (7.5mg) then resume 7.5mg X 4 days and 5mg X 3 days F/U INR Date : suggested 2 weeks but pt insisted on 4 weeks?? Patient verbalizing understanding of instructions given. 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
== END 2024-08-13 09:40 | disposition home or self-care (01) ==
LOC: HO.ACS 09:11
PROVIDERS: PCP Internal Medicine; Visit Provider Internal Medicine
DX: Z79.01 Long term (current) use of anticoagulants (principal)

== ENCOUNTER → 2024-08-13 09:11 | Outpatient (BNVA) | payer BC, SELFPAY | PROVIDERS: PCP Internal Medicine; Visit Provider Internal Medicine | DX: Z86.73 Personal history of transient ischemic attack (TIA), and cerebral infarction without residual deficits (principal); Z79.01 Long term (current) use of anticoagulants; Z51.81 Encounter for therapeutic drug level monitoring | CPT/HCPCS: 85610; 99211 ==

== ENCOUNTER 2024-08-21 06:53 | Outpatient (REF) | payer BC, SELFPAY ==
[2024-08-21 07:22] LABS: MANUAL DIFF FLAG NO
[2024-08-21 08:01] LABS: Basophils Absolute Auto 0.1 X10*3/uL (0.0-0.2); Basophils Percent Auto 0.6 % (0-2); Eosinophils Absolute Auto 0.3 X10*3/uL (0.0-0.4); Eosinophils Percent Auto 3.5 % (0-4); Imm Gran Abs Auto 0.03 X10*3/uL (0.00-0.03); Imm Gran Pct Auto 0.4 % (0.0-0.4); Lymphocytes Absolute Auto 1.5 X10*3/uL (1.2-4.9); Lymphocytes Percent Auto 18.7 % (20-40); Mean Corpuscular HGB Conc 32.6 g/dl (31.0-36.0); Mean Corpuscular Hemoglobin 29.9 pg (27.0-33.0); Mean Corpuscular Volume 91.6 fL (80.0-98.0); Mean Platelet Volume 10.1 fL (9.4-12.4); Monocytes Absolute Auto 0.7 X10*3/uL (0.1-1.2); Monocytes Percent Auto 8.7 % (2-11); Neutrophils Absolute Auto 5.6 x10*3/uL (2.0-8.3); Neutrophils Percent Auto 68.1 % (45-73); Platelet Count 200 X10*3/uL (160-400); Red Blood Count 5.02 X10*6/uL (4.60-5.80); Red Cell Distribution Width 13.1 % (11.0-16.0); White Blood Count 8.2 X10*3/uL (4.8-10.8)
[2024-08-21 08:08] LABS: Estimated Average Glucose 126 mg/dL; Hemoglobin A1C 156.7482 umol/L; Total Hemoglobin (HGBA1C) 3694.9726 umol/L
[2024-08-21 08:43] LABS: Alanine Aminotransferase 24 U/L (0-40); Alkaline Phosphatase 115 U/L (39-117); Anion Gap 11 (12-20); Aspartate Amino Transferase 22 U/L (5-37); Bilirubin Total 0.5 mg/dL (0.0-1.0); Blood Urea Nitrogen 17 mg/dL (9-16); Calcium 8.9 mg/dL (8.4-10.2); Carbon Dioxide 25 mmol/L (22-29); Chloride 106 mmol/L (96-108); Cholesterol 148 mg/dL (<200); Estimated Glomerular Filt Rate > 60; Glucose Random 115 mg/dL (60-115); HDL Cholesterol 40 mg/dL (>40); LDL Cholesterol Calculated 94 mg/dL (<100); Potassium 4.1 mmol/L (3.3-5.1); Sodium 138 mmol/L (135-145); Total Protein 7.1 g/dL (6.5-8.0); Triglycerides 71 mg/dL (<150)
[2024-08-21 09:01] LABS: Free T4 (Free Thyroxine) 1.15 ng/dL (0.71-1.85); Thyroid Stimulating Hormone 2.35 uIU/mL (0.32-4.0)
[2024-08-21 09:07] LABS: Folate 6.9 ng/mL (> or = 4.0); Prostate Specific Antigen Scr 0.46 ng/mL (<0.05-4.0); Vitamin B12 731 pg/mL (200-900)
== END 2024-08-21 06:54 | disposition home or self-care (01) ==
LOC: HO.LAB 06:53
PROVIDERS: PCP Internal Medicine; Visit Provider Internal Medicine
DX: E78.00 Pure hypercholesterolemia, unspecified (principal); R73.02 Impaired glucose tolerance (oral); Z12.5 Encounter for screening for malignant neoplasm of prostate
CPT/HCPCS: 36415; 80053; 80061; 82607; 82746; 83036; 84153; 84439; 84443; 85025

== ENCOUNTER 2024-08-27 13:46 | Outpatient (AMB) | payer BC, SELFPAY ==
--- NOTE | 2024-08-27 13:50 | MHC.PC.OV ---
Vital Signs 08/27/24 13:51 Height 5 ft 9 in Weight 180 lb BMI 26.6 BP 144/70 H Blood Pressure Location Lt brachial Position Sitting Pulse 90 Pulse Source Pulse Oximeter Pulse Oximetry (%) 96 Oxygen Delivery Method Room Air Intake Visit Reasons: annual exam Allergies amoxicillin [Augmentin] Allergy (Unknown, Verified 08/27/24 13:51) RASH clavulanic acid [Augmentin] Allergy (Unknown, Verified 08/27/24 13:51) RASH penicillin V Allergy (Unknown, Verified 08/27/24 13:51) rash augmentin Allergy (Unknown, Uncoded 08/27/24 13:51) hives, swelling Clenbuterol HCl Allergy (Unknown, Uncoded 08/27/24 13:51) swelling Clindamycin HCl Allergy (Unknown, Uncoded 08/27/24 13:51) swelling Medication List - Last Reconciled 08/27/24 by Georges Diaz MD acetaminophen (Tylenol) 325 mg PO QID PRN amlodipine 5 mg PO DAILY 90 days atorvastatin 80 mg PO BEDTIME 90 days cyanocobalamin (vitamin B-12) 1,000 mcg PO DAILY warfarin 5 mg See Protocol PO DAILY Tobacco use date assessed: 08/27/24 Fall risk assessment: No Falls in past year Last assessed Fall Risk: 08/27/24 Dental Screening Dental Screen Date: 08/27/24 Did you have a dental visit in the last 12 months?: Yes Did you have a dental problem in the last 6 months where you did not have access to dental care?: No Was dental information given to patient?: Patient has dentist HPI annual exam HPI Details 64-year-old male with hypertension hypercholesterolemia history of CVA coming in for physical exam last seen in May 2023. CT colonography 2021. FORMERLY [facility], LAT[facility] Medical History (Updated 08/27/24 @ 14:33 by Georges Diaz MD) Condyloma acuminatum of scrotum Spermatocele Duodenal ulcer Chronic pancreatitis Hypercholesterolemia Diverticular disease History of CVA (cerebrovascular accident) On anticoagulant therapy Allergic rhinitis RBBB Hypertension Surgical History (Updated 11/18/21 @ 17:09 by Georges Diaz MD) S/P trigger finger release Hx of colonoscopy Hx of right inguinal hernia repair H/O wrist surgery Family History (Updated 11/23/21 @ 13:59 by Georges Diaz MD) Father Myocarditis Sister SVT (supraventricular tachycardia) Mother Substance abuse Social History (Updated 08/27/24 @ 14:09 by Georegs Diaz MD) Housing: House Alcohol intake: current Comment: once a month3 beers Patient Tobacco Use Status: Former Tobacco user Tobacco use type: Cigarette Years Smoked: quit 42 years old e-Cigarette/Vaping Use: Never Used Second Hand Smoke Exposure: No Current occupational status: employed Cognitive needs: No Hearing needs: No Vision needs: No Questionnaire PHQ-9 Over the last 2 weeks, how often have you been bothered by any of the following problems? 1. Little interest or pleasure in doing things: not at all 2. Feeling down, depressed, or hopeless: not at all 3. Trouble falling or staying asleep, or sleeping too much: not at all 4. Feeling tired or having little energy: not at all 5. Poor appetite or overeating: not at all 6. Feeling bad about yourself - or that you are a failure or have let yourself or your family down: not at all 7. Trouble concentrating on things, such as reading the newspaper or watching television: not at all 8. Moving or speaking so slowly that other people could have noticed. Or the opposite - being so fidgety or restless that you have been moving around a lot more than usual: not at all 9. Thoughts that you would be better off or of hurting yourself in some way: not at all Total score: 0 Source: Developed by Drs. Antoine Patel, Narcisa Isaacs, Rico Daugherty and colleagues, with an educational cristal from [employer]. Thrive Questionnaire Date Thrive assessed: 05/30/23 I am a: Patient What is your living situation today?: I have a steady place to live Within the past 12 months, did the food you bought not last and you didn't have the money to get more?: Never true Within the past 12 months, did you worry whether your food would run out before you got money to buy more?: Never true Do you have trouble paying for medicines?: No Do you have trouble getting transportation to medical appointments?: No Do you have trouble paying your heating and electricity bill?: No Do you have trouble taking care of your child, family member or friend?: No Do you have trouble with day-to-day activities such as bathing, preparing meals, shopping, managing finances, etc.?: No Are you currently unemployed and looking for a job?: No Are you interested in more education?: No Please select the resources that you would like help with: None Currently or been in a relationship where the following occur: No concerns reported THRIVE Score: 0 AUDIT C Alcohol Use Questionnaire (AUDIT-C) 1. How often do you have a drink containing alcohol?: Never Total Score: 0 KASI-7 AMB Questionnaire KASI-7 Date KASI - 7 assessed: 08/27/24 Feeling nervous, anxious, or on edge: 0 = Not at all Not being able to stop or control worryin = Not at all Worrying too much about different things: 0 = Not at all Trouble relaxin = Not at all Being so restless that it is hard to sit still: 0 = Not at all Becoming easily annoyed or irritable: 0 = Not at all Feeling afraid as if something awful might happen: 0 = Not at all Total KASI-7 score (0-4 normal; 5-9 mild; 10-14 moderate; 15-21 severe): 0 Source: Developed by Drs. Antoine Patel, Narcisa Isaacs, Rico Daugherty and colleagues, with an educational cristal from [employer]. Review of Systems Const Denies poor appetite and Denies weakness Eyes Denies no additional complaints ENT Reports Normal hearing present, Denies dizziness, Denies nasal congestion, Denies tinnitus and Denies sore throat Card Denies chest pain, Denies syncope, Denies rapid heart rate and Denies dyspnea Resp Denies cough and Denies dyspnea GI Denies change in stool character, Reports constipation, Denies diarrhea, Denies nausea and Denies vomiting Denies dysuria and Denies urinary frequency Neuro Reports Normal hearing present, Denies confusion, Denies dizziness, Denies syncope and Denies weakness Psych Denies confusion Physical exam (Primary Care) Vital Signs: Oxygen Delivery Method Room Air 08/27/24 13:51 Tobacco/Smoking Status: Tobacco use Status Tobacco use date assessed 08/27/24 08/27/24 13:52 Patient Tobacco Use Status Former Tobacco user 08/27/24 13:52 Tobacco use type Cigarette 08/27/24 13:52 e-Cigarette/Vaping Use Never Used 08/27/24 13:52 PHQ-9: PHQ-9 Score PHQ-9: Total score 0 08/27/24 13:52 Thrive Assessment: Date of Thrive Assessment Date Thrive assessed 05/30/23 08/27/24 13:52 Currently or been in a relationship where the following occur: No concerns reported Const General: alert and awake; No confusion Orientation/consciousness: No confusion HENMT Other: Impacted cerumen bilateral ear Head: Yes normocephalic Ears: external ears normal Face and sinus: Yes normal facial exam Mouth: moist mucous membranes Throat: Yes tonsils normal Eyes Conjunctivae: conjunctivae normal Pupils: Equal, round and reactive pupils present and Pupil accommodation reflex normal Direct Ophthalmoscopy: normal light reflex Neck Neck: No lymphadenopathy Thyroid: Thyroid normal Chest Chest palpation & inspection: normal inspection of the chest Resp Effort & Inspection: normal respiratory effort and no audible wheezes Auscultation: clear to auscultation bilaterally, no crackles, no wheezes and lung sounds not diminished Cardio Rate: regular rate Rhythm: regular rhythm Peripheral pulses: radial pulses present and dorsalis pedis present GI Other: Guaiac negative stools normal prostate Palpation (GI): no masses Auscultation: normal bowel sounds and normoactive bowel sounds Male General Exam: Yes normal external exam Skin General skin exam: no rashes or lesions noted Rashes: no rashes Neuro General: deep tendon reflexes 2+ bilaterally and No confusion Cranial nerves: Yes Equal, round and reactive pupils present, Yes Midline tongue present, Yes Normal hearing present and Yes Ability to bilaterally elevate shoulders present Cognition (Neuro): normal cognition Gait exam (Neuro): Normal gait present Motor exam (neuro): 5/5 motor strength present throughout Deep tendon reflexes (DTR's): Right brachioradialis reflex intensity grade: 2+, Left brachioradialis reflex intensity grade: 2+, Right patellar reflex intensity grade: 2+ and Left patellar reflex intensity grade: 2+ Extrem General: No edema Coding Level of Care Code Est Pt Prev Care 40-64y(95810) Diagnoses Annual physical exam Z00.00 Primary hypertension I10 Hypertension type: primary hypertension Hypercholesterolemia E78.00 Impaired glucose tolerance R73.02 Benign prostatic hyperplasia without lower urinary tract symptoms N40.0 Lower urinary tract symptom presence: symptoms absent Cerebrovascular accident (CVA), unspecified mechanism I63.9 CVA mechanism: unspecified Erectile dysfunction N52.9 Impacted cerumen, bilateral H61.23 Assessment & Plan Assessment & Plan (1) Annual physical exam: Code(s): Z00.00 - Encounter for general adult medical examination without abnormal findings Category: Medical Plan: Patient is advised to eat healthy, keep well hydrated, keep active and have adequate sleep. (2) Hypertension: Code(s): I10 - Essential (primary) hypertension Category: Medical Qualifiers: Hypertension type: primary hypertension Qualified Code(s): I10 - Essential (primary) hypertension Plan: Continue with blood pressure medication. Decrease salt intake and exercise on amlodipine 5 mg once a day. advised to check the BP outside (3) Hypercholesterolemia: Code(s): E78.00 - Pure hypercholesterolemia, unspecified Category: Medical Plan: Avoid fried foods, chicken skin, eggs, butter margarine, pastries and meat. Be it pork or beef they have a lot of cholesterol LDL goal of less than 70 and triglyceride of less than 150 on atorvastatin 80 mg once a day (4) Impaired glucose tolerance: Code(s): R73.02 - Impaired glucose tolerance (oral) Category: Medical Plan: Decrease the amount of carbohydrate intake, pasta, bread, rice and potatoes are all sugar and that is aside from all the sweet stuff, remember that fruits are good but they are Sweet also. (5) BPH (benign prostatic hyperplasia): Code(s): N40.0 - Benign prostatic hyperplasia without lower urinary tract symptoms Category: Medical Qualifiers: Lower urinary tract symptom presence: symptoms absent Qualified Code(s): N40.0 - Benign prostatic hyperplasia without lower urinary tract symptoms Plan: Continuing to monitor (6) CVA (cerebral vascular accident): Comment: November 2018. No residual Code(s): I63.9 - Cerebral infarction, unspecified Category: Medical Qualifiers: CVA mechanism: unspecified Qualified Code(s): I63.9 - Cerebral infarction, unspecified Plan: Control the cholesterol, weight, blood pressure, diabetes on anticoagulation (7) Erectile dysfunction: Code(s): N52.9 - Male erectile dysfunction, unspecified Category: Medical Plan: medication SCRIPT (8) Impacted cerumen, bilateral: Code(s): H61.23 - Impacted cerumen, bilateral Category: Medical Plan: Patient will seek Dr. Calero for ear cleaning Orders: Orders Comprehensive Met. Panel Today E78.00 - Pure hypercholesterolemia, unspecified Hemoglobin A1c Today R73.02 - Impaired glucose tolerance (oral) Lipid Panel Today E78.00 - Pure hypercholesterolemia, unspecified Medications: New sildenafil administer 30 minutes to 4 hours before activity 50 mg PO DAILY PRN 14 tabs 2RF sexual activity N52.9 - Male erectile dysfunction, unspecified
[2024-08-27 13:51] VITALS: BP 144/70; PULSE 90; O2SAT 96; BMI 26.6
== END 2024-08-27 14:45 | disposition home or self-care (01) ==
PROVIDERS: PCP Internal Medicine; Visit Provider Internal Medicine
DX: Z00.00 Encounter for general adult medical examination without abnormal findings (principal); I10 Essential (primary) hypertension; Z86.73 Personal history of transient ischemic attack (TIA), and cerebral infarction without residual deficits; E78.00 Pure hypercholesterolemia, unspecified; R73.02 Impaired glucose tolerance (oral); N40.0 Benign prostatic hyperplasia without lower urinary tract symptoms; N52.9 Male erectile dysfunction, unspecified; H61.23 Impacted cerumen, bilateral

== ENCOUNTER → 2024-08-27 13:46 | Outpatient (BNVA) | payer BC, SELFPAY | PROVIDERS: PCP Internal Medicine; Visit Provider Internal Medicine ==

== ENCOUNTER 2024-09-08 15:41 | Outpatient (AMB) | payer BC, SELFPAY ==
[2024-09-08 15:48] VITALS: BP 150/90; PULSE 85; O2SAT 98; BMI 26.6
--- NOTE | 2024-09-08 15:48 | A.OFFPC_ITS ---
Vital Signs 09/08/24 15:48 Height 5 ft 9 in Weight 180 lb BMI 26.6 BP 150/90 H Blood Pressure Location Lt brachial Position Sitting Pulse 85 Pulse Source Pulse Oximeter Pulse Oximetry (%) 98 Oxygen Delivery Method Room Air Intake Visit Reasons: both ear flush Allergies amoxicillin [Augmentin] Allergy (Unknown, Verified 09/08/24 15:48) RASH clavulanic acid [Augmentin] Allergy (Unknown, Verified 09/08/24 15:48) RASH penicillin V Allergy (Unknown, Verified 09/08/24 15:48) rash augmentin Allergy (Unknown, Uncoded 09/08/24 15:48) hives, swelling Clenbuterol HCl Allergy (Unknown, Uncoded 09/08/24 15:48) swelling Clindamycin HCl Allergy (Unknown, Uncoded 09/08/24 15:48) swelling Tobacco use date assessed: 08/27/24 Fall risk assessment: No Falls in past year Last assessed Fall Risk: 09/08/24 Dental Screening Dental Screen Date: 08/27/24 HPI both ear flush HPI Details 64-year-old male presents to the office today for bilateral ear flushing. Patient states he has an issue with wax primarily in the right ear. FOR[facility]LY [facility], LAT[facility] Medical History (Updated 08/27/24 @ 14:33 by Georges Diaz MD) Condyloma acuminatum of scrotum Spermatocele Duodenal ulcer Chronic pancreatitis Hypercholesterolemia Diverticular disease History of CVA (cerebrovascular accident) On anticoagulant therapy Allergic rhinitis RBBB Hypertension Surgical History (Updated 11/18/21 @ 17:09 by Georges Diaz MD) S/P trigger finger release Hx of colonoscopy Hx of right inguinal hernia repair H/O wrist surgery Family History (Updated 11/23/21 @ 13:59 by Georges Diaz MD) Father Myocarditis Sister SVT (supraventricular tachycardia) Mother Substance abuse Social History (Updated 08/27/24 @ 14:09 by Georges Diaz MD) Housing: House Alcohol intake: current Comment: once a month3 nam Patient Tobacco Use Status: Former Tobacco user Tobacco use type: Cigarette Years Smoked: quit 42 years old e-Cigarette/Vaping Use: Never Used Second Hand Smoke Exposure: No Current occupational status: employed Cognitive needs: No Hearing needs: No Vision needs: No Questionnaire Thrive Questionnaire Date Thrive assessed: 08/27/24 I am a: Patient What is your living situation today?: I have a steady place to live Within the past 12 months, did the food you bought not last and you didn't have the money to get more?: Never true Within the past 12 months, did you worry whether your food would run out before you got money to buy more?: Never true Do you have trouble paying for medicines?: No Do you have trouble getting transportation to medical appointments?: No Do you have trouble paying your heating and electricity bill?: No Do you have trouble taking care of your child, family member or friend?: No Do you have trouble with day-to-day activities such as bathing, preparing meals, shopping, managing finances, etc.?: No Are you currently unemployed and looking for a job?: No Are you interested in more education?: No Please select the resources that you would like help with: None Currently or been in a relationship where the following occur: No concerns reported THRIVE Score: 0 AUDIT C Alcohol Use Questionnaire (AUDIT-C) 1. How often do you have a drink containing alcohol?: Never Total Score: 0 KASI-7 AMB Questionnaire KASI-7 Date KASI - 7 assessed: 08/27/24 Source: Developed by Drs. Antoine Patel, Narcisa Isaacs, Rico Daugherty and colleagues, with an educational cristal from [employer]. Review of Systems Const Denies body aches, Denies chills and Denies fever(s) Eyes Reports no additional complaints ENT Details: Decreased hearing right ear Card Reports no additional complaints Resp Reports no additional complaints GI Reports no additional complaints Physical exam (Primary Care) Vital Signs: Last Vital Signs Pulse 85 09/08/24 15:48 Pulse Ox 98 09/08/24 15:48 Oxygen Delivery Method Room Air 09/08/24 15:48 BMI result Body Mass Index 26.6 Tobacco/Smoking Status: Tobacco use Status Tobacco use date assessed 08/27/24 09/08/24 15:48 Patient Tobacco Use Status Former Tobacco user 09/08/24 15:48 Tobacco use type Cigarette 09/08/24 15:48 e-Cigarette/Vaping Use Never Used 09/08/24 15:48 Thrive Assessment: Date of Thrive Assessment Date Thrive assessed 08/27/24 09/08/24 15:48 Currently or been in a relationship where the following occur: No concerns reported Const General: cooperative, healthy appearing, comfortable and no acute distress HENMT Ears: Abnormal EAC present cerumen impaction bilateral Resp Effort & Inspection: normal respiratory effort and able to speak in complete sentences Office Procedures Cerumen Removal From which ear canal was the cerumen removed: bilateral Removal: irrigation and otoscope w/curette Notes: patient tolerated procedure well and no complications 34489-[id number] Irrigation/Lavage Coding Level of Care Code Est Pt Level 3 (81323) Diagnoses Impacted cerumen, bilateral H61.23 CPT Codes Office Procedure - CPT: 25193-Hpk Irrigation/Lavage ([id number]) Assessment & Plan Assessment & Plan (1) Impacted cerumen, bilateral: Code(s): H61.23 - Impacted cerumen, bilateral Category: Medical Plan: Cerumen of the left ear was successfully removed with irrigation and lighted curette. Right ear had severely impacted hard cerumen that was unable to be flushed or removed with curette or irrigation. Advised patient to use Debrox drops for 5 days and reschedule ear flushing. Plan This note was constructed using voice recognition software. While every effort has been made to ensure accuracy and natural resources specialist, still areas may have been included sometimes these areas may affect the content or meeting of the given symptoms. Total time spent caring for the patient today was 20 minutes. This includes time spent before the visit reviewing the chart, time spent during the visit, and time spent after the visit and documentation. Medications: New carbamide peroxide 6.5% (Debrox) 5 drps otic (ear) left DAILY 4 days 15 mL 0RF
== END 2024-09-08 16:16 | disposition home or self-care (01) ==
LOC: HO.HMCH 15:42
PROVIDERS: PCP Internal Medicine
DX: H61.23 Impacted cerumen, bilateral (principal)

== ENCOUNTER → 2024-09-08 15:41 | Outpatient (BNVA) | payer BC, SELFPAY | PROVIDERS: PCP Internal Medicine | DX: H61.23 Impacted cerumen, bilateral (principal) | CPT/HCPCS: 69210 ==

== ENCOUNTER → 2024-09-10 15:45 | Outpatient (BNVA) | payer BC, SELFPAY | PROVIDERS: PCP Internal Medicine; Visit Provider Internal Medicine | DX: Z86.73 Personal history of transient ischemic attack (TIA), and cerebral infarction without residual deficits (principal); Z79.01 Long term (current) use of anticoagulants; Z51.81 Encounter for therapeutic drug level monitoring | CPT/HCPCS: 99211 ==

== ENCOUNTER 2024-10-08 15:47 | Outpatient (AMB) | payer BC, SELFPAY ==
[2024-10-08 15:53] LABS: Prothrombin Time Whole Bld POC 33.7 sec (11.1-13.5); ~PT, ~INR - Anti Coag Clinic 2.8 (0.9-1.1)
--- NOTE | 2024-10-08 15:58 | MHC.OFFVISCO ---
Intake Intake Visit Reasons: Anticoagulation Allergies amoxicillin [Augmentin] Allergy (Unknown, Verified 10/08/24 15:47) RASH clavulanic acid [Augmentin] Allergy (Unknown, Verified 10/08/24 15:47) RASH penicillin V Allergy (Unknown, Verified 10/08/24 15:47) rash augmentin Allergy (Unknown, Uncoded 10/08/24 15:47) hives, swelling Clenbuterol HCl Allergy (Unknown, Uncoded 10/08/24 15:47) swelling Clindamycin HCl Allergy (Unknown, Uncoded 10/08/24 15:47) swelling Medication List - Last Reconciled 10/08/24 by Jelena Diaz RN acetaminophen (Tylenol) 325 mg PO QID PRN amlodipine 5 mg PO DAILY 90 days atorvastatin 80 mg PO BEDTIME 90 days carbamide peroxide 6.5% (Debrox) 5 drps otic (ear) left DAILY 4 days cyanocobalamin (vitamin B-12) 1,000 mcg PO DAILY sildenafil 50 mg PO DAILY PRN warfarin 5 mg See Protocol PO DAILY Nursing Note INR: 2.8 in therapeutic range Medications and supplements reviewed No changes in health, diet, medications, or supplements, Denies any signs and symptoms of bleeding or bruising or clotting. Bleeding, bruising, clotting discussed Nutritional guidance given Dose: 5MG X 3 DAYS/7.5MG X 4 DAYS F/U INR: 1 MONTH Patient verbalizes understanding of instructions given Anti-Coag Initial Assessment Social Hx Patient Tobacco Use Status: Former Tobacco user Tobacco use type: Cigarette alcohol intake: current Coding Level of Care Code Est Patient Level 1 Diagnoses Current use of anticoagulant therapy Z79.01 Results AMB INR Fingerstick AMB INR Fingerstick 2.8 Last Edit by Jelena Diaz RN on 10/08/24 15:54 manual entry Assessment & Plan Assessment & Plan (1) Current use of anticoagulant therapy: Code(s): Z79.01 - half-way (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
== END 2024-10-08 15:59 | disposition home or self-care (01) ==
LOC: HO.ACS 15:47
PROVIDERS: PCP Internal Medicine; Visit Provider Internal Medicine
DX: Z79.01 Long term (current) use of anticoagulants (principal)

== ENCOUNTER → 2024-10-08 15:47 | Outpatient (BNVA) | payer BC, SELFPAY | PROVIDERS: PCP Internal Medicine; Visit Provider Internal Medicine | DX: Z86.73 Personal history of transient ischemic attack (TIA), and cerebral infarction without residual deficits (principal); Z79.01 Long term (current) use of anticoagulants; Z51.81 Encounter for therapeutic drug level monitoring | CPT/HCPCS: 85610; 99211 ==

== ENCOUNTER 2024-11-05 15:41 | Outpatient (AMB) | payer BC, SELFPAY ==
[2024-11-05 15:52] LABS: Prothrombin Time Whole Bld POC 33.5 sec (11.1-13.5); ~PT, ~INR - Anti Coag Clinic 2.8 (0.9-1.1)
--- NOTE | 2024-11-05 15:56 | MHC.OFFVISCO ---
Intake Intake Visit Reasons: Anticoagulation Allergies amoxicillin [Augmentin] Allergy (Unknown, Verified 11/05/24 15:46) RASH clavulanic acid [Augmentin] Allergy (Unknown, Verified 11/05/24 15:46) RASH penicillin V Allergy (Unknown, Verified 11/05/24 15:46) rash augmentin Allergy (Unknown, Uncoded 11/05/24 15:46) hives, swelling Clenbuterol HCl Allergy (Unknown, Uncoded 11/05/24 15:46) swelling Clindamycin HCl Allergy (Unknown, Uncoded 11/05/24 15:46) swelling Medication List - Last Reconciled 11/05/24 by Jelena Diaz, RN acetaminophen (Tylenol) 325 mg PO QID PRN amlodipine 5 mg PO DAILY 90 days atorvastatin 80 mg PO BEDTIME 90 days carbamide peroxide 6.5% (Debrox) 5 drps otic (ear) left DAILY 4 days cyanocobalamin (vitamin B-12) 1,000 mcg PO DAILY sildenafil 50 mg PO DAILY PRN warfarin 5 mg See Protocol PO DAILY Nursing Note INR: 2.8 in therapeutic range Medications and supplements reviewed No changes in health, diet, medications, or supplements, Denies any signs and symptoms of bleeding or bruising or clotting. 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
== END 2024-11-05 15:58 | disposition home or self-care (01) ==
LOC: HO.ACS 15:41
PROVIDERS: PCP Internal Medicine; Visit Provider Internal Medicine
DX: Z79.01 Long term (current) use of anticoagulants (principal)

== ENCOUNTER → 2024-11-05 15:41 | Outpatient (BNVA) | payer BC, SELFPAY | PROVIDERS: PCP Internal Medicine; Visit Provider Internal Medicine | DX: Z86.73 Personal history of transient ischemic attack (TIA), and cerebral infarction without residual deficits (principal); Z79.01 Long term (current) use of anticoagulants; Z51.81 Encounter for therapeutic drug level monitoring | CPT/HCPCS: 85610; 99211 ==

== ENCOUNTER → 2024-11-19 15:39 | Outpatient (BNVA) | payer BC, SELFPAY | PROVIDERS: PCP Internal Medicine ==

== ENCOUNTER 2024-12-10 15:41 | Outpatient (AMB) | payer BC, SELFPAY ==
[2024-12-10 15:47] LABS: Prothrombin Time Whole Bld POC 28.6 sec (11.1-13.5); ~PT, ~INR - Anti Coag Clinic 2.4 (0.9-1.1)
--- NOTE | 2024-12-10 15:50 | MHC.OFFVISCO ---
Intake Intake Visit Reasons: Anticoagulation Allergies amoxicillin [Augmentin] Allergy (Unknown, Verified 12/10/24 15:42) RASH clavulanic acid [Augmentin] Allergy (Unknown, Verified 12/10/24 15:42) RASH penicillin V Allergy (Unknown, Verified 12/10/24 15:42) rash augmentin Allergy (Unknown, Uncoded 12/10/24 15:42) hives, swelling Clenbuterol HCl Allergy (Unknown, Uncoded 12/10/24 15:42) swelling Clindamycin HCl Allergy (Unknown, Uncoded 12/10/24 15:42) swelling Medication List - Last Reconciled 12/10/24 by Jelena Diaz RN acetaminophen (Tylenol) 325 mg PO QID PRN amlodipine 5 mg PO DAILY 90 days atorvastatin 80 mg PO BEDTIME 90 days carbamide peroxide 6.5% (Debrox) 5 drps otic (ear) left DAILY 4 days cyanocobalamin (vitamin B-12) 1,000 mcg PO DAILY sildenafil 50 mg PO DAILY PRN warfarin 5 mg See Protocol PO DAILY Nursing Note INR: 2.4 in therapeutic range Medications and supplements reviewed No changes in health, diet, medications, or supplements, Denies any signs and symptoms of bleeding or bruising or clotting. Bleeding, bruising, clotting discussed Nutritional guidance given Dose: 5mg x 3 days/ 7.5mg x 4 days F/U INR: 1 month Patient verbalizes understanding of instructions given Anti-Coag Initial Assessment Social Hx Patient Tobacco Use Status: Former Tobacco user Tobacco use type: Cigarette alcohol intake: current Coding Level of Care Code Est Patient Level 1 Diagnoses Current use of anticoagulant therapy Z79.01 Results AMB INR Fingerstick AMB INR Fingerstick 2.4 Last Edit by Jelena Diaz RN on 12/10/24 15:48 manual entry failed expanse interfacing ongoing Assessment & Plan Assessment & Plan (1) Current use of anticoagulant therapy: Code(s): Z79.01 - snf (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
== END 2024-12-10 15:51 | disposition home or self-care (01) ==
LOC: HO.ACS 15:41
PROVIDERS: PCP Internal Medicine; Visit Provider Internal Medicine
DX: Z79.01 Long term (current) use of anticoagulants (principal)

== ENCOUNTER → 2024-12-10 15:41 | Outpatient (BNVA) | payer BC, SELFPAY | PROVIDERS: PCP Internal Medicine; Visit Provider Internal Medicine | DX: Z86.73 Personal history of transient ischemic attack (TIA), and cerebral infarction without residual deficits (principal); Z79.01 Long term (current) use of anticoagulants; Z51.81 Encounter for therapeutic drug level monitoring | CPT/HCPCS: 85610; 99211 ==

== ENCOUNTER 2025-01-07 11:09 | Outpatient (AMB) | payer BC, SELFPAY ==
[2025-01-07 11:16] LABS: Prothrombin Time Whole Bld POC 32.8 sec (11.1-13.5); ~PT, ~INR - Anti Coag Clinic 2.7 (0.9-1.1)
--- NOTE | 2025-01-07 11:19 | MHC.OFFVISCO ---
Intake Intake Visit Reasons: Anticoagulation Allergies amoxicillin [Augmentin] Allergy (Unknown, Verified 01/07/25 11:11) RASH clavulanic acid [Augmentin] Allergy (Unknown, Verified 01/07/25 11:11) RASH penicillin V Allergy (Unknown, Verified 01/07/25 11:11) rash augmentin Allergy (Unknown, Uncoded 01/07/25 11:11) hives, swelling Clenbuterol HCl Allergy (Unknown, Uncoded 01/07/25 11:11) swelling Clindamycin HCl Allergy (Unknown, Uncoded 01/07/25 11:11) swelling Medication List - Last Reconciled 01/07/25 by Marina Kurtz RN acetaminophen (Tylenol) 325 mg PO QID PRN amlodipine 5 mg PO DAILY 90 days atorvastatin 80 mg PO BEDTIME 90 days carbamide peroxide 6.5% (Debrox) 5 drps otic (ear) left DAILY 4 days cyanocobalamin (vitamin B-12) 1,000 mcg PO DAILY sildenafil 50 mg PO DAILY PRN warfarin 5 mg See Protocol PO DAILY Nursing Note Amb to ACS feeling well Medications and supplements reviewed No changes in health, diet, medications, or supplements, Denies any signs and symptoms of bleeding, bruising, or clotting. Bleeding, bruising, clotting discussed INR: 2.7 in therapeutic range Dose: continue usual dosing 5mg x 3 days and 7.5mg x 4 days Nutritional guidance given balance greens and reds in diet, be consistent F/U INR: 4 weeks Patient verbalizes understanding of instructions given Anti-Coag Initial Assessment Social Hx Patient Tobacco Use Status: Former Tobacco user Tobacco use type: Cigarette alcohol intake: current Questionnaires HAS-BLED Does the patient had uncontrolled Hypertension?: No Does the patient have renal disease?: No Does the patient have liver disease?: No Does the patient have a history of stroke?: Yes Has the patient had major bleeding or predisposition to bleeding?: No Does the patient have labile INRs?: No Is the patient over 65 years of age?: No Is the patient on medications that gives them a predisposition to bleeding?: Yes Does the patient use alcohol?: No HAS-BLED Score: 2 CHADSVASC Age: <65 Gender: Male Does the patient have a history of CHF?: No Does the patient have a history of Hypertension?: Yes Does the patient have a history of Stroke/TIA/Thromboembolism?: Yes Does the patient have a history of Vascular Disease (prior MT, PAD or aortic plaque)?: No Does the patient have a history of Diabetes?: No CHADS VACS Score: 3 Joy Prediction Score Rsk VTE Active Cancer: No Previous VTE, excluding superficial vein thrombosis: No Reduced mobility: No Already known Thrombophilic Condition: Yes With-in last month Trauma and/or Surgery: No Elderly 70 year or older: No Heart and/or Respiratory Failure: No Acute Myocardial infarction and/or Ischemic Stroke: Yes Acute Infection and/or Rheumatologic Disorder: No Obesity (BMI 30 or greater): No Ongoing Hormonal Treatment: No Score: 4 Joy Score less than 4; Low Risk of VTE Joy Score 4 or greater; High Risk of VTE Coding Level of Care Code Est Patient Level 1 Diagnoses Current use of anticoagulant therapy Z79.01 Time Spent (min) 15 Assessment & Plan Assessment & Plan (1) Current use of anticoagulant therapy: 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
--- OUTSIDE RECORDS SUMMARY | 2025-01-07 12:56 | XMS_ITS | Patient Health Record ---
Author Organization [facility] Address [address] [place] [address] Care Team Providers Care Generation Mechanic Helper Name Role Phone Lashonda Santiago Primary Care Provider Bert Esquivel Jr Unavailable Allergies Allergen (clinical drug ingredient) Drug/Non Drug Allergy documented on EMR Reaction Allergy Type Onset Date Status clindamycin Clindamycin HCl Unknown Drug Allergy Active amoxicillin / clavulanate Augmentin Unknown Drug Allergy Active Reason For Referral No Information Medications Medication SIG (Take, Route, Frequency, Duration) Notes Start Date End Date Status Warfarin Sodium 5 MG 1 tablet Orally 5mg m,w,f and 7.5 t,th sat,sun Active MiraLax (colon prep) 8.3 ounce ((238) grams mixed with Gatorade or Crystal Light orally begin at 5:00 p.m. the day before the procedure for 1 day 05/31/2020 Active amLODIPine Besylate 5 MG 1 tablet Orally Once a day for 30 day(s) Active Atorvastatin Calcium 80 MG 1 tablet Oral ly Once a day Active Immunizations Vaccine Route Administration Date Status Comme nts Influenza Unknown 08/03/2019 Administered Social History Alcohol Screen Question Answer Notes Did you have a drink contain ing alcohol in the past year? Yes How often did you have a dri nk containing alcohol in the past year? Never (0 point) How many drinks did you have on a typical day when you were drinking in the past year? 1 or 2 drinks (0 point) Points 0 Interpretation Negative Problems Problem Type SNOMED Code ICD Code Onset Dates Problem Status W/U Status Risk Notes Problem 358032913 Colon cancer screening (Z12.11) Active confirmed Problem 106433678 senior living (curre nt) use of anticoagulants (Z79.01) Active confirmed Problem [id number] Encounter for ot her preprocedural examination (Z01.818) Active confirmed Plan Of Treatment Future Test Test Name Order Date COLONOSCOPY 06/02/2014 COLONOSCOPY 05/31/2020 Insurance Providers Payer Name Payer Address Payer Phone Subscriber Number Group Number Insured Name Patient Relationship to Insured Coverage Start Date Coverage End Date [facility] [address] [place], [place] [id number] [phone] [id number] JONATHON BLAKELY (Skip) Self - patient is the insured Medical (General) History Medical History History ICD Code right bundle branch block stroke elevated cholesterol colonoscopy 10/16, one small tubular thelma noma, five-year followup Surgical History Surgery Date(Month/Year) wrist surgery hernia repair spermatocele repair
== END 2025-01-07 12:15 | disposition home or self-care (01) ==
LOC: HO.ACS 11:09
PROVIDERS: PCP Internal Medicine; Visit Provider Internal Medicine
DX: Z79.01 Long term (current) use of anticoagulants (principal)

== ENCOUNTER → 2025-01-07 11:09 | Outpatient (BNVA) | payer BC, SELFPAY | PROVIDERS: PCP Internal Medicine; Visit Provider Internal Medicine | DX: Z86.718 Personal history of other venous thrombosis and embolism (principal); Z79.01 Long term (current) use of anticoagulants; Z51.81 Encounter for therapeutic drug level monitoring | CPT/HCPCS: 85610; 99211 ==

== ENCOUNTER 2025-02-04 11:14 | Outpatient (AMB) | payer BC, SELFPAY ==
[2025-02-04 11:21] LABS: Prothrombin Time Whole Bld POC 34.6 sec (11.1-13.5); ~PT, ~INR - Anti Coag Clinic 2.9 (0.9-1.1)
--- NOTE | 2025-02-04 11:22 | MHC.OFFVISCO ---
Intake Intake Visit Reasons: Anticoagulation Allergies amoxicillin [Augmentin] Allergy (Unknown, Verified 02/04/25 11:18) RASH clavulanic acid [Augmentin] Allergy (Unknown, Verified 02/04/25 11:18) RASH penicillin V Allergy (Unknown, Verified 02/04/25 11:18) rash augmentin Allergy (Unknown, Uncoded 02/04/25 11:18) hives, swelling Clenbuterol HCl Allergy (Unknown, Uncoded 02/04/25 11:18) swelling Clindamycin HCl Allergy (Unknown, Uncoded 02/04/25 11:18) swelling Medication List - Last Reconciled 02/04/25 by Marina Sylvester, RN acetaminophen (Tylenol) 325 mg PO QID PRN amlodipine 5 mg PO DAILY 90 days atorvastatin 80 mg PO BEDTIME 90 days carbamide peroxide 6.5% (Debrox) 5 drps otic (ear) left DAILY 4 days cyanocobalamin (vitamin B-12) 1,000 mcg PO DAILY sildenafil 50 mg PO DAILY PRN warfarin 5 mg See Protocol PO DAILY Nursing Note INR: 2.9 in therapeutic range of 2-3 Medications and supplements reviewed No changes in health, diet, medications, or supplements, Denies any signs and symptoms of bleeding or bruising or clotting. Bleeding, bruising, clotting discussed Nutritional guidance given Dose: 7.5mg X 4 days and 5mg X 3 days (M/W/F) F/U INR: 4 weeks Patient verbalizes understanding of instructions given Anti-Coag Initial Assessment Social Hx Patient Tobacco Use Status: Former Tobacco user Tobacco use type: Cigarette alcohol intake: current Coding Level of Care Code Est Patient Level 1 Diagnoses Current use of anticoagulant therapy Z79.01 Results AMB INR Fingerstick AMB INR Fingerstick 2.9 Last Edit by Marina Sylvester, RN on 02/04/25 11:22 interface delay Assessment & Plan Assessment & Plan (1) Current use of anticoagulant therapy: 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
--- OUTSIDE RECORDS SUMMARY | 2025-02-04 13:08 | XMS_ITS | Patient Health Record ---
Author Organization [facility] Address [address] [place] [phone] Care Team Providers Care Career Center Director Name Role Phone Lashonda Santiago Primary Care [...] Problem Status W/U Status Risk Notes Problem [id number] Colon cancer screening (Z12.11) Active confirmed Problem 453866488 assisted (curre nt) use of anticoagulants (Z79.01) Active confirmed Problem 622468997 Encounter for ot her preprocedural examination (Z01.818) Active confirmed Plan Of Treatment Future Test Test Name Order Date COLONOSCOPY 06/02/2014 COLONOSCOPY 05/31/2020 Insurance Providers Payer Name Payer Address Payer Phone Subscriber Number Group Number Insured Name Patient Relationship to Insured Coverage Start Date Coverage End Date [facility] [address] [place], [place] [id number] JONATHON BLAKELY (Skip) Self - patient is the insured Medical (General) History Medical History History ICD Code right bundle branch block stroke elevated cholesterol colonoscopy 10/16, one small tubular thelma noma, five-year followup Surgical History Surgery Date(Month/Year) wrist surgery hernia repair spermatocele repair
== END 2025-02-04 11:28 | disposition home or self-care (01) ==
LOC: HO.ACS 11:14
PROVIDERS: PCP Internal Medicine; Visit Provider Internal Medicine Medical Oncology
DX: Z79.01 Long term (current) use of anticoagulants (principal)

== ENCOUNTER → 2025-02-04 11:14 | Outpatient (BNVA) | payer BC, SELFPAY | PROVIDERS: PCP Internal Medicine; Visit Provider Internal Medicine Medical Oncology | DX: Z86.73 Personal history of transient ischemic attack (TIA), and cerebral infarction without residual deficits (principal); Z79.01 Long term (current) use of anticoagulants; Z51.81 Encounter for therapeutic drug level monitoring | CPT/HCPCS: 85610; 99211 ==

== ENCOUNTER 2025-03-04 15:40 | Outpatient (AMB) | payer BC, SELFPAY ==
--- NOTE | 2025-03-04 15:50 | MHC.OFFVISCO ---
Intake Intake Visit Reasons: Anticoagulation Allergies amoxicillin [Augmentin] Allergy (Unknown, Verified 03/04/25 15:40) RASH clavulanic acid [Augmentin] Allergy (Unknown, Verified 03/04/25 15:40) RASH penicillin V Allergy (Unknown, Verified 03/04/25 15:40) rash augmentin Allergy (Unknown, Uncoded 03/04/25 15:40) hives, swelling Clenbuterol HCl Allergy (Unknown, Uncoded 03/04/25 15:40) swelling Clindamycin HCl Allergy (Unknown, Uncoded 03/04/25 15:40) swelling Medication List - Last Reconciled 03/04/25 by Marina Sylvester, RN acetaminophen (Tylenol) 325 mg PO QID PRN amlodipine 5 mg PO DAILY 90 days atorvastatin 80 mg PO BEDTIME 90 days carbamide peroxide 6.5% (Debrox) 5 drps otic (ear) left DAILY 4 days cyanocobalamin (vitamin B-12) 1,000 mcg PO DAILY sildenafil 50 mg PO DAILY PRN warfarin 5 mg See Protocol PO DAILY Nursing Note INR: 3.3 out of therapeutic range of 2-3 Pt states the INR is high because he didn't get his usual greens this week. Medications and supplements reviewed No changes in health, medications, or supplements, Denies any signs and symptoms of bleeding or bruising or clotting. Bleeding, bruising, clotting discussed Nutritional guidance given to have a serving of greens today Dose: 7.5mg X 4 days and 5mg X 3 days (M/W/F) F/U INR: 4 weeks Patient verbalizes understanding of instructions given Anti-Coag Initial Assessment Social Hx Patient Tobacco Use Status: Former Tobacco user Tobacco use type: Cigarette alcohol intake: current Coding Level of Care Code Est Patient Level 1 Diagnoses Current use of anticoagulant therapy Z79.01 Results AMB INR Fingerstick AMB INR Fingerstick 3.3 Last Edit by Marina Sylvester RN on 03/04/25 15:45 interface delay Assessment & Plan Assessment & Plan (1) Current use of anticoagulant therapy: Code(s): 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
[2025-03-04 15:52] LABS: Prothrombin Time Whole Bld POC 39.6 sec (11.1-13.5); ~PT, ~INR - Anti Coag Clinic 3.3 (0.9-1.1)
== END 2025-03-04 15:52 | disposition home or self-care (01) ==
LOC: HO.ACS 15:40
PROVIDERS: PCP Internal Medicine; Visit Provider Internal Medicine Medical Oncology
DX: Z79.01 Long term (current) use of anticoagulants (principal)

== ENCOUNTER → 2025-03-04 15:40 | Outpatient (BNVA) | payer BC, SELFPAY | PROVIDERS: PCP Internal Medicine; Visit Provider Internal Medicine Medical Oncology | DX: Z86.73 Personal history of transient ischemic attack (TIA), and cerebral infarction without residual deficits (principal); Z51.81 Encounter for therapeutic drug level monitoring; Z79.01 Long term (current) use of anticoagulants | CPT/HCPCS: 85610; 99211 ==

== ENCOUNTER 2025-04-01 15:43 | Outpatient (AMB) | payer BC, SELFPAY ==
--- OUTSIDE RECORDS SUMMARY | 2025-04-01 15:45 | XMS_ITS | Patient Health Record ---
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.01) Active confirmed Problem 131857543 Encounter for ot her preprocedural examination (Z01.818) Active confirmed Plan Of Treatment Future Test Test Name Order Date COLONOSCOPY 06/02/2014 COLONOSCOPY 05/31/2020 Insurance Providers Payer Name Payer Address Payer Phone Subscriber Number Group Number Insured Name Patient Relationship to Insured Coverage Start Date Coverage End Date [facility] [address] [place], [place] [id number] JONATHON BLAKELY (Skip) Self - patient is the insured Medical (General) History Medical History History ICD Code right bundle branch block stroke elevated cholesterol colonoscopy 10/16, one small tubular thelma noma, five-year followup Surgical History Surgery Date(Month/Year) wrist surgery hernia repair spermatocele repair
[2025-04-01 15:51] LABS: Prothrombin Time Whole Bld POC 38.6 sec (11.1-13.5); ~PT, ~INR - Anti Coag Clinic 3.2 (0.9-1.1)
--- NOTE | 2025-04-01 15:55 | MHC.OFFVISCO ---
Intake Intake Visit Reasons: Anticoagulation Allergies amoxicillin [Augmentin] Allergy (Unknown, Verified 04/01/25 15:44) RASH clavulanic acid [Augmentin] Allergy (Unknown, Verified 04/01/25 15:44) RASH penicillin V Allergy (Unknown, Verified 04/01/25 15:44) rash augmentin Allergy (Unknown, Uncoded 04/01/25 15:44) hives, swelling Clenbuterol HCl Allergy (Unknown, Uncoded 04/01/25 15:44) swelling Clindamycin HCl Allergy (Unknown, Uncoded 04/01/25 15:44) swelling Medication List - Last Reconciled 04/01/25 by Jelena Diaz, RN acetaminophen (Tylenol) 325 mg PO QID PRN amlodipine 5 mg PO DAILY 90 days atorvastatin 80 mg PO BEDTIME 90 days carbamide peroxide 6.5% (Debrox) 5 drps otic (ear) left DAILY 4 days cyanocobalamin (vitamin B-12) 1,000 mcg PO DAILY sildenafil 50 mg PO DAILY PRN warfarin 5 mg See Protocol PO DAILY Nursing Note INR 3.2 out of therapeutic range Medications and supplements reviewed Patient status: took a tylenol yesterday, c/o tennitis for 1 1/2 years waiting to ENT - [facility] to have an appt with ENT [facility] Medications or supplements: no Rx changes - had tyelnol yesterday Diet: good Denies any signs and symptoms of bleeding or clotting or unusual bruising Bleeding, bruising, clotting discussed Nutritional guidance given: just a little more greens Dose: keep same dose 5mg x 3 days/ 7.5mg x 4 days F/U INR Date : 4 weeks?? Patient verbalizing understanding of instructions given. 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
== END 2025-04-01 15:58 | disposition home or self-care (01) ==
LOC: HO.ACS 15:43
PROVIDERS: PCP Internal Medicine; Visit Provider Internal Medicine Medical Oncology
DX: Z79.01 Long term (current) use of anticoagulants (principal)

== ENCOUNTER → 2025-04-01 15:43 | Outpatient (BNVA) | payer BC, SELFPAY | PROVIDERS: PCP Internal Medicine; Visit Provider Internal Medicine Medical Oncology | DX: Z86.73 Personal history of transient ischemic attack (TIA), and cerebral infarction without residual deficits (principal); Z51.81 Encounter for therapeutic drug level monitoring; Z79.01 Long term (current) use of anticoagulants | CPT/HCPCS: 85610; 99211 ==

== ENCOUNTER 2025-04-29 14:03 | Outpatient (AMB) | payer BC, SELFPAY ==
[2025-04-29 14:13] LABS: Prothrombin Time Whole Bld POC 35.1 sec (11.1-13.5); ~PT, ~INR - Anti Coag Clinic 2.9 (0.9-1.1)
--- NOTE | 2025-04-29 14:14 | MHC.OFFVISCO ---
Intake Intake Visit Reasons: Anticoagulation Allergies amoxicillin (Augmentin) Allergy (Unknown, Verified 04/01/25 15:44) RASH clavulanic acid (Augmentin) Allergy (Unknown, Verified 04/01/25 15:44) RASH penicillin V Allergy (Unknown, Verified 04/01/25 15:44) rash augmentin Allergy (Unknown, Uncoded 04/01/25 15:44) hives, swelling Clenbuterol HCl Allergy (Unknown, Uncoded 04/01/25 15:44) swelling Clindamycin HCl Allergy (Unknown, Uncoded 04/01/25 15:44) swelling Medication List - Last Reconciled 04/29/25 by Marina Sylvester, RN acetaminophen (Tylenol) 325 mg PO QID PRN amlodipine 5 mg PO DAILY 90 days atorvastatin 80 mg PO BEDTIME 90 days carbamide peroxide 6.5% (Debrox) 5 drps otic (ear) left DAILY 4 days cyanocobalamin (vitamin B-12) 1,000 mcg PO DAILY sildenafil 50 mg PO DAILY PRN warfarin 5 mg See Protocol PO DAILY Nursing Note INR: 2.9 in therapeutic range of 2-3 Medications and supplements reviewed No changes in health, diet, medications, or supplements, Denies any signs and symptoms of bleeding or bruising or clotting. 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
--- OUTSIDE RECORDS SUMMARY | 2025-04-29 14:31 | XMS_ITS | Patient Health Record ---
Author Organization [facility] Address [address] [place] [phone] Care Team Providers Care Getter Filler Name Role Phone Lashonda Santiago Primary Care Provider Bert Esquivel Jr Unavailable [phone] Allergies Allergen (clinical drug ingredient) Drug/Non Drug [...] Problem Status W/U Status Risk Notes Problem [id number] Colon cancer screening (Z12.11) Active confirmed Problem 868464141 [facility] (curre nt) use of anticoagulants (Z79.01) Active confirmed Problem [id number] Encounter for ot her preprocedural examination (Z01.818) Active confirmed Plan Of Treatment Future Test Test Name Order Date COLONOSCOPY 06/02/2014 COLONOSCOPY 05/31/2020 Insurance Providers Payer Name Payer Address Payer Phone Subscriber Number Group Number Insured Name Patient Relationship to Insured Coverage Start Date Coverage End Date [facility] [address] [place], [place] [id number] JONATHON BLAKELY (Skip) Self - patient is the insured Medical (General) History Medical History History ICD Code right bundle branch block stroke elevated cholesterol colonoscopy 10/16, one small tubular thelma noma, five-year followup Surgical History Surgery Date(Month/Year) wrist surgery hernia repair spermatocele repair
== END 2025-04-29 14:17 | disposition home or self-care (01) ==
LOC: HO.ACS 14:03
PROVIDERS: PCP Internal Medicine; Visit Provider Internal Medicine Medical Oncology
DX: Z79.01 Long term (current) use of anticoagulants (principal)

== ENCOUNTER → 2025-04-29 14:03 | Outpatient (BNVA) | payer BC, SELFPAY | PROVIDERS: PCP Internal Medicine; Visit Provider Internal Medicine Medical Oncology | DX: I69.90 Unspecified sequelae of unspecified cerebrovascular disease (principal); Z51.81 Encounter for therapeutic drug level monitoring; Z79.01 Long term (current) use of anticoagulants | CPT/HCPCS: 85610; 99211 ==

== ENCOUNTER 2025-05-27 10:01 | Outpatient (AMB) | payer BC, SELFPAY ==
[2025-05-27 10:12] LABS: Prothrombin Time Whole Bld POC 44.1 sec (11.1-13.5); ~PT, ~INR - Anti Coag Clinic 3.7 (0.9-1.1)
--- NOTE | 2025-05-27 10:15 | MHC.OFFVISCO ---
Intake Intake Visit Reasons: Anticoagulation Allergies amoxicillin (Augmentin) Allergy (Unknown, Verified 05/27/25 10:08) RASH clavulanic acid (Augmentin) Allergy (Unknown, Verified 05/27/25 10:08) RASH penicillin V Allergy (Unknown, Verified 05/27/25 10:08) rash augmentin Allergy (Unknown, Uncoded 05/27/25 10:08) hives, swelling Clenbuterol HCl Allergy (Unknown, Uncoded 05/27/25 10:08) swelling Clindamycin HCl Allergy (Unknown, Uncoded 05/27/25 10:08) swelling Medication List - Last Reconciled 05/27/25 by Marina Sylvester, RN acetaminophen (Tylenol) 325 mg PO QID PRN amlodipine 5 mg PO DAILY 90 days atorvastatin 80 mg PO BEDTIME 90 days carbamide peroxide 6.5% (Debrox) 5 drps otic (ear) left DAILY 4 days cyanocobalamin (vitamin B-12) 1,000 mcg PO DAILY sildenafil 50 mg PO DAILY PRN warfarin See Protocol 7.5mg x 4 days/ 5mg x 3 days, 1-2 tabs orally daily, as directed by Anticoagulation Services Nursing Note INR: 3.7?out of therapeutic range of 2-3 Medications and supplements reviewed Patient status: feels well Medications or supplements: no changes Diet: has been having summer fruits which can raise the INR Denies any signs and symptoms of bleeding or clotting or unusual bruising Bleeding, bruising, clotting discussed Nutritional guidance given: to have a serving of greens today Dose: decrease today's dose to 2.5mg then 7.5mg X 4 days and 5mg X 3 days F/U INR Date: 4 weeks?? Patient verbalizing understanding of instructions given. 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
--- OUTSIDE RECORDS SUMMARY | 2025-05-27 10:16 | XMS_ITS | Patient Health Record ---
Author Organization [facility] Address [address] [place] [phone] Care Team Providers Care Director Digital Strategy Name Role Phone Lashonda Santiago Primary Care [...] Problem Status W/U Status Risk Notes Problem [id number] Colon cancer screening (Z12.11) Active confirmed Problem 070917148 retirement (curre nt) use of anticoagulants (Z79.01) Active confirmed Problem 706129133 Encounter for ot her preprocedural examination (Z01.818) Active confirmed Plan Of Treatment Future Test Test Name Order Date COLONOSCOPY 06/02/2014 COLONOSCOPY 05/31/2020 Insurance Providers Payer Name Payer Address Payer Phone Subscriber Number Group Number Insured Name Patient Relationship to Insured Coverage Start Date Coverage End Date [facility] [address] [place], [place] [id number] JONATHON BLAKELY (Skip) Self - patient is the insured Medical (General) History Medical History History ICD Code right bundle branch block stroke elevated cholesterol colonoscopy 10/16, one small tubular thelma noma, five-year followup Surgical History Surgery Date(Month/Year) wrist surgery hernia repair spermatocele repair
== END 2025-05-27 10:20 | disposition home or self-care (01) ==
LOC: HO.ACS 10:01
PROVIDERS: PCP Internal Medicine; Visit Provider Internal Medicine Medical Oncology
DX: Z79.01 Long term (current) use of anticoagulants (principal)

== ENCOUNTER → 2025-05-27 10:01 | Outpatient (BNVA) | payer BC, SELFPAY | PROVIDERS: PCP Internal Medicine; Visit Provider Internal Medicine Medical Oncology | DX: Z86.73 Personal history of transient ischemic attack (TIA), and cerebral infarction without residual deficits (principal); Z79.01 Long term (current) use of anticoagulants; Z51.81 Encounter for therapeutic drug level monitoring | CPT/HCPCS: 85610; 99211 ==

== ENCOUNTER 2025-06-24 15:49 | Outpatient (AMB) | payer BC, SELFPAY ==
--- OUTSIDE RECORDS SUMMARY | 2025-06-24 15:51 | XMS_ITS | Patient Health Record ---
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.01) Active confirmed Problem 196711207 Encounter for ot her preprocedural examination (Z01.818) Active confirmed Plan Of Treatment Future Test Test Name Order Date COLONOSCOPY 06/02/2014 COLONOSCOPY 05/31/2020 Insurance Providers Payer Name Payer Address Payer Phone Subscriber Number Group Number Insured Name Patient Relationship to Insured Coverage Start Date Coverage End Date [facility] [address] [place], [place] [id number] [phone] [id number] JONATHON BLAKELY (Skip) Self - patient is the insured Medical (General) History Medical History History ICD Code right bundle branch block stroke elevated cholesterol colonoscopy 10/16, one small tubular thelma noma, five-year followup Surgical History Surgery Date(Month/Year) wrist surgery hernia repair spermatocele repair
[2025-06-24 15:55] LABS: Prothrombin Time Whole Bld POC 35.8 sec (11.1-13.5); ~PT, ~INR - Anti Coag Clinic 3.0 (0.9-1.1)
--- NOTE | 2025-06-24 16:02 | MHC.OFFVISCO ---
Intake Intake Visit Reasons: Anticoagulation Allergies amoxicillin (Augmentin) Allergy (Unknown, Verified 06/24/25 15:50) RASH clavulanic acid (Augmentin) Allergy (Unknown, Verified 06/24/25 15:50) RASH penicillin V Allergy (Unknown, Verified 06/24/25 15:50) rash augmentin Allergy (Unknown, Uncoded 06/24/25 15:50) hives, swelling Clenbuterol HCl Allergy (Unknown, Uncoded 06/24/25 15:50) swelling Clindamycin HCl Allergy (Unknown, Uncoded 06/24/25 15:50) swelling Medication List - Last Reconciled 06/24/25 by Jelena Diaz RN acetaminophen (Tylenol) 325 mg PO QID PRN amlodipine 5 mg PO DAILY 90 days atorvastatin 80 mg PO BEDTIME 90 days carbamide peroxide 6.5% (Debrox) 5 drps otic (ear) left DAILY 4 days cyanocobalamin (vitamin B-12) 1,000 mcg PO DAILY sildenafil 50 mg PO DAILY PRN warfarin See Protocol 7.5mg x 4 days/ 5mg x 3 days, 1-2 tabs orally daily, as directed by Anticoagulation Services Nursing Note INR: 3.0 in therapeutic range- still in upper range- likes watermelon in the summer - will increase cooked greens Medications and supplements reviewed No changes in health, diet, medications, or supplements, Denies any signs and symptoms of bleeding or bruising or clotting. Bleeding, bruising, clotting discussed Nutritional guidance given - discussed eating broccoli x 2 days/ week plus one other weak green Dose: 5mg x 3 days/ 7.5mg x 4 days F/U INR: 4 weeks Patient verbalizes understanding of instructions given Anti-Coag Initial Assessment Social Hx Patient Tobacco Use Status: Former Tobacco user Tobacco use type: Cigarette alcohol intake: current Coding Level of Care Code Est Patient Level 1 Diagnoses Current use of anticoagulant therapy Z79.01 Results AMB INR Fingerstick AMB INR Fingerstick 3.0 Last Edit by Jelena Diaz RN on 06/24/25 15:56 manual entry Assessment & Plan Assessment & Plan (1) Current use of anticoagulant therapy: Code(s): 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
== END 2025-06-24 16:05 | disposition home or self-care (01) ==
LOC: HO.ACS 15:49
PROVIDERS: PCP Internal Medicine; Visit Provider Internal Medicine Medical Oncology
DX: Z79.01 Long term (current) use of anticoagulants (principal)

== ENCOUNTER → 2025-06-24 15:49 | Outpatient (BNVA) | payer BC, SELFPAY | PROVIDERS: PCP Internal Medicine; Visit Provider Internal Medicine Medical Oncology | DX: Z86.73 Personal history of transient ischemic attack (TIA), and cerebral infarction without residual deficits (principal); Z79.01 Long term (current) use of anticoagulants; Z51.81 Encounter for therapeutic drug level monitoring | CPT/HCPCS: 85610; 99211 ==

== ENCOUNTER 2025-07-22 10:11 | Outpatient (AMB) | payer BC, SELFPAY ==
[2025-07-22 10:29] LABS: Prothrombin Time Whole Bld POC 32.9 sec (11.1-13.5); ~PT, ~INR - Anti Coag Clinic 2.7 (0.9-1.1)
--- NOTE | 2025-07-22 10:29 | MHC.OFFVISCO ---
Intake Intake Visit Reasons: Anticoagulation Allergies amoxicillin (Augmentin) Allergy (Unknown, Verified 07/22/25 10:25) RASH clavulanic acid (Augmentin) Allergy (Unknown, Verified 07/22/25 10:25) RASH penicillin V Allergy (Unknown, Verified 07/22/25 10:25) rash augmentin Allergy (Unknown, Uncoded 07/22/25 10:25) hives, swelling Clenbuterol HCl Allergy (Unknown, Uncoded 07/22/25 10:25) swelling Clindamycin HCl Allergy (Unknown, Uncoded 07/22/25 10:25) swelling Medication List - Last Reconciled 07/22/25 by Marina Sylvester, RN acetaminophen (Tylenol) 325 mg PO QID PRN amlodipine 5 mg PO DAILY 90 days atorvastatin 80 mg PO BEDTIME 90 days carbamide peroxide 6.5% (Debrox) 5 drps otic (ear) left DAILY 4 days cyanocobalamin (vitamin B-12) 1,000 mcg PO DAILY sildenafil 50 mg PO DAILY PRN warfarin See Protocol 7.5mg x 4 days/ 5mg x 3 days, 1-2 tabs orally daily, as directed by Anticoagulation Services Nursing Note INR: 2.7 in therapeutic range of 2-3 Medications and supplements reviewed No changes in health, diet, medications, or supplements, Denies any signs and symptoms of bleeding or bruising or clotting. Bleeding, bruising, clotting discussed Nutritional guidance given Dose: 7.5mg X 4 days and 5mg X 3 days F/U INR: 4 weeks Patient verbalizes understanding of instructions given Anti-Coag Initial Assessment Social Hx Patient Tobacco Use Status: Former Tobacco user Tobacco use type: Cigarette alcohol intake: current Coding Level of Care Code Est Patient Level 1 Diagnoses Current use of anticoagulant therapy Z79.01 Assessment & Plan Assessment & Plan (1) Current use of anticoagulant therapy: Code(s): Z79.01 - long-term (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
== END 2025-07-22 10:32 | disposition home or self-care (01) ==
LOC: HO.ACS 10:11
PROVIDERS: PCP Internal Medicine; Visit Provider Internal Medicine Medical Oncology
DX: Z79.01 Long term (current) use of anticoagulants (principal)

== ENCOUNTER → 2025-07-22 10:11 | Outpatient (BNVA) | payer BC, SELFPAY | PROVIDERS: PCP Internal Medicine; Visit Provider Internal Medicine Medical Oncology | DX: Z86.73 Personal history of transient ischemic attack (TIA), and cerebral infarction without residual deficits (principal); Z79.01 Long term (current) use of anticoagulants; Z51.81 Encounter for therapeutic drug level monitoring | CPT/HCPCS: 85610; 99211 ==

== ENCOUNTER 2025-08-19 15:44 | Outpatient (AMB) | payer BC, SELFPAY ==
--- NOTE | 2025-08-19 15:54 | MHC.OFFVISCO ---
Intake Intake Visit Reasons: Anticoagulation Allergies amoxicillin (Augmentin) Allergy (Unknown, Verified 08/19/25 15:45) RASH clavulanic acid (Augmentin) Allergy (Unknown, Verified 08/19/25 15:45) RASH penicillin V Allergy (Unknown, Verified 08/19/25 15:45) rash augmentin Allergy (Unknown, Uncoded 08/19/25 15:45) hives, swelling Clenbuterol HCl Allergy (Unknown, Uncoded 08/19/25 15:45) swelling Clindamycin HCl Allergy (Unknown, Uncoded 08/19/25 15:45) swelling Medication List - Last Reconciled 08/19/25 by Marina Sylvester RN acetaminophen (Tylenol) 325 mg PO QID PRN amlodipine 5 mg PO DAILY 90 days atorvastatin 80 mg PO BEDTIME 90 days carbamide peroxide 6.5% (Debrox) 5 drps otic (ear) left DAILY 4 days cyanocobalamin (vitamin B-12) 1,000 mcg PO DAILY sildenafil 50 mg PO DAILY PRN warfarin See Protocol 7.5mg x 4 days/ 5mg x 3 days, 1-2 tabs orally daily, as directed by Anticoagulation Services Nursing Note INR: 3.7 out of therapeutic range of 2-3 Medications and supplements reviewed Patient status: feels well Medications or supplements: no changes Diet: usual diet, maybe didn't have enough broccoli Denies any signs and symptoms of bleeding or clotting or unusual bruising Bleeding, bruising, clotting discussed Nutritional guidance given: to have a seving of greens today Dose: since pt already took today's dose, will decrease tomorrow's dose to 5mg (7.5mg) then back to usual dose of 7.5mg X 4 days and 5mg X 3 days (M/W/F) F/U INR Date: 4 weeks Patient verbalizing understanding of instructions given. Anti-Coag Initial Assessment Social Hx Patient Tobacco Use Status: Former Tobacco user Tobacco use type: Cigarette alcohol intake: current Coding Level of Care Code Est Patient Level 1 Diagnoses Current use of anticoagulant therapy Z79.01 Results AMB INR Fingerstick AMB INR Fingerstick 3.7 Last Edit by Marina Sylvester RN on 08/19/25 15:52 interface delay Assessment & Plan Assessment & Plan (1) Current use of anticoagulant therapy: Code(s): Z79.01 - custodial (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
--- OUTSIDE RECORDS SUMMARY | 2025-08-19 18:09 | XMS_ITS | Patient Health Record ---
Author Organization [facility] Address [address] [place] [id number] Care Team Providers Care Lpn Per Diem Name Role Phone Lashonda Santiago Primary Care Provider Bert Esquivel Jr Unavailable [phone] Allergies Allergen (clinical drug ingredient) Drug/Non Drug [...] at 5:00 p.m. the day before the procedure; Duration: 1 day 05/31/2020 Active amLODIPine Besylate 5 MG 1 tablet Orally Once a day; Duration: 30 day(s) Active Atorvastatin Calcium 80 MG [...] Problem Status W/U Status Risk Notes Problem Colon cancer screening (973018300) Colon cancer screening (Z12.11) Active confirmed Problem Long-term current use of anticoagulant (321272012) alf (current) use of anticoagulants (Z79.01) Active confirmed Problem Pre-procedure evaluation check (326268728) Encounter for other preprocedural examination (Z01.818) Active confirmed Plan Of Treatment Future Test Test Name Order Date COLONOSCOPY 06/02/2014 COLONOSCOPY 05/31/2020 Insurance Providers Payer Name Payer Address Payer Phone Subscriber Number Group Number Insured Name Patient Relationship to Insured Coverage Start Date Coverage End Date [facility] [address] [place], [place] [phone] [id number] JONATHON BLAKELY (Skip) Self - patient is the insured Medical (General) History Medical History History ICD Code right bundle branch block stroke elevated cholesterol colonoscopy 10/16, one small tubular thelma noma, five-year followup Surgical History Surgery Date(Month/Year) wrist surgery hernia repair spermatocele repair
[2025-08-20 10:25] LABS: Prothrombin Time Whole Bld POC 44.8 sec (11.1-13.5); ~PT, ~INR - Anti Coag Clinic 3.7 (0.9-1.1)
== END 2025-08-19 15:59 | disposition home or self-care (01) ==
LOC: HO.ACS 15:44
PROVIDERS: PCP Internal Medicine; Visit Provider Internal Medicine Medical Oncology
DX: Z79.01 Long term (current) use of anticoagulants (principal)

== ENCOUNTER → 2025-08-19 15:44 | Outpatient (BNVA) | payer BC, SELFPAY | PROVIDERS: PCP Internal Medicine; Visit Provider Internal Medicine Medical Oncology | DX: Z86.73 Personal history of transient ischemic attack (TIA), and cerebral infarction without residual deficits (principal); Z79.01 Long term (current) use of anticoagulants; Z51.81 Encounter for therapeutic drug level monitoring | CPT/HCPCS: 85610; 99211 ==

== ENCOUNTER 2025-08-27 07:05 | Outpatient (REF) | payer BC, SELFPAY ==
--- OUTSIDE RECORDS SUMMARY | 2025-08-27 07:09 | XMS_ITS | Patient Health Record ---
Author Organization [facility] Address [address] [place] [id number] Care Team Providers Care Curber Name Role Phone Lashonda Santiago Primary Care [...] Status Risk Notes Problem Colon cancer screening (971162840) Colon cancer screening (Z12.11) Active confirmed Problem Long-term current use of anticoagulant (404909004) half-way (current) use of anticoagulants (Z79.01) Active confirmed Problem Pre-procedure evaluation check (275862181) Encounter for other preprocedural examination (Z01.818) Active confirmed Plan Of Treatment Future Test Test Name Order Date COLONOSCOPY 06/02/2014 COLONOSCOPY 05/31/2020 Insurance Providers Payer Name Payer Address Payer Phone Subscriber Number Group Number Insured Name Patient Relationship to Insured Coverage Start Date Coverage End Date [facility] [address] [place], [place] [phone] [id number] JONATHON BLAKELY (Skip) Self - patient is the insured Medical (General) History Medical History History ICD Code right bundle branch block stroke elevated cholesterol colonoscopy 10/16, one small tubular thelma noma, five-year followup Surgical History Surgery Date(Month/Year) wrist surgery hernia repair spermatocele repair
[2025-08-27 07:58] LABS: Alanine Aminotransferase 29 U/L (0-40); Albumin Level 4.5 g/dL (3.5-5.0); Alkaline Phosphatase 125 U/L (39-117); Anion Gap 12 (12-20); Aspartate Amino Transferase 37 U/L (5-37); Blood Urea Nitrogen 13 mg/dL (9-16); Calcium 9.3 mg/dL (8.4-10.2); Carbon Dioxide 27 mmol/L (22-29); Chloride 106 mmol/L (96-108); Cholesterol 147 mg/dL (<200); Estimated Glomerular Filt Rate > 60; HDL Cholesterol 44 mg/dL (>40); Potassium 4.7 mmol/L (3.3-5.1); Sodium 140 mmol/L (135-145); Total Protein 7.9 g/dL (6.5-8.0); Triglycerides 70 mg/dL (<150)
== END 2025-08-27 07:06 | disposition home or self-care (01) ==
LOC: HO.LAB 07:05
PROVIDERS: PCP Internal Medicine; Visit Provider Internal Medicine
DX: E78.00 Pure hypercholesterolemia, unspecified (principal); R73.02 Impaired glucose tolerance (oral)
CPT/HCPCS: 36415; 80053; 80061; 83036

== ENCOUNTER 2025-09-02 13:42 | Outpatient (AMB) | payer BC, SELFPAY ==
[2025-09-02 13:48] VITALS: BP 122/66; PULSE 81; RESP 18; TEMP 36.3; O2SAT 97; BMI 26.4
--- NOTE | 2025-09-02 13:48 | MHC.PC.OV ---
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 Accompanied by: Self / Same As Patient Allergies amoxicillin (Augmentin) Allergy (Unknown, Verified 09/02/25 13:48) RASH clavulanic acid (Augmentin) Allergy (Unknown, Verified 09/02/25 13:48) RASH penicillin V Allergy (Unknown, Verified 09/02/25 13:48) rash augmentin Allergy (Unknown, Uncoded 08/19/25 15:45) hives, swelling Clenbuterol HCl Allergy (Unknown, Uncoded 08/19/25 15:45) swelling Clindamycin HCl Allergy (Unknown, Uncoded 08/19/25 15:45) swelling Medication List - Last Reconciled 09/02/25 by Georges Diaz MD acetaminophen (Tylenol) 325 mg PO QID PRN amlodipine 5 mg PO DAILY 90 days atorvastatin 80 mg PO BEDTIME 90 days carbamide peroxide 6.5% (Debrox) 5 drps otic (ear) left DAILY 4 days cyanocobalamin (vitamin B-12) 1,000 mcg PO DAILY sildenafil 50 mg PO DAILY PRN warfarin See Protocol 7.5mg x 4 days/ 5mg x 3 days, 1-2 tabs orally daily, as directed by Anticoagulation Services Tobacco use date assessed: 09/02/25 Fall risk assessment: No Falls in past year Last assessed Fall Risk: 09/02/25 Dental Screening Dental Screen Date: 09/02/25 Did you have a dental visit in the last 12 months?: No Did you have a dental problem in the last 6 months where you did not have access to dental care?: No Was dental information given to patient?: Patient has dentist [facility] Medical History Condyloma acuminatum of scrotum Spermatocele Duodenal ulcer Chronic pancreatitis Hypercholesterolemia Diverticular disease History of CVA (cerebrovascular accident) On anticoagulant therapy Allergic rhinitis RBBB Hypertension Surgical History S/P trigger finger release Hx of colonoscopy Hx of right inguinal hernia repair H/O wrist surgery Family History Father Myocarditis Sister SVT (supraventricular tachycardia) Mother Substance abuse Social History (Updated 09/02/25 @ 14:05 by Georges Diaz MD) Housing: House Alcohol intake: current Comment: once a month3 beers . 08/2025- 2 beers a month Patient Tobacco Use Status: Former Tobacco user Tobacco use type: Cigarette Years Smoked: quit 42 years old e-Cigarette/Vaping Use: Never Used Second Hand Smoke Exposure: No Current occupational status: employed Cognitive needs: No Hearing needs: No Vision needs: No Questionnaire Thrive Questionnaire Date Thrive assessed: 11/19/24 KASI-7 AMB Questionnaire KASI-7 Date KASI - 7 assessed: 11/19/24 Source: Developed by Drs. Antoine Paetl, Narcisa Isaacs, Rico Daugherty and colleagues, with an educational cristal from [employer]. Review of Systems Const Denies poor appetite and Denies weakness Eyes Denies no additional complaints ENT Reports Normal hearing present, Denies dizziness, Denies nasal congestion, Denies tinnitus and Denies sore throat Card Denies chest pain, Denies syncope, Denies rapid heart rate and Denies dyspnea Resp Denies cough and Denies dyspnea GI Denies change in stool character, Reports constipation, Denies diarrhea, Denies nausea and Denies vomiting Denies dysuria and Denies urinary frequency Neuro Reports Normal hearing present, Denies confusion, Denies dizziness, Denies syncope and Denies weakness Psych Denies confusion Physical exam (Primary Care) Vital Signs: Last Vital Signs Temp 97.3 F 09/02/25 13:48 Pulse 81 09/02/25 13:48 Resp 18 09/02/25 13:48 BP 122/66 09/02/25 13:48 Pulse Ox 97 09/02/25 13:48 Oxygen Delivery Method Room Air 09/02/25 13:48 BMI result Body Mass Index 26.4 Tobacco/Smoking Status: Tobacco use Status Tobacco use date assessed 09/02/25 09/02/25 13:50 Patient Tobacco Use Status Former Tobacco user 09/02/25 14:05 Tobacco use type Cigarette 09/02/25 14:05 e-Cigarette/Vaping Use Never Used 09/02/25 14:05 Thrive Assessment: Date of Thrive Assessment Date Thrive assessed 11/19/24 09/02/25 13:50 Const General: No confusion Orientation/consciousness: No confusion HENMT Head: Yes normocephalic Ears: external ears normal and TM's normal bilaterally Face and sinus: Yes normal facial exam Mouth: moist mucous membranes Throat: Yes tonsils normal Eyes Conjunctivae: conjunctivae normal Pupils: Equal, round and reactive pupils present and Pupil accommodation reflex normal Direct Ophthalmoscopy: normal light reflex Neck Neck: No lymphadenopathy Thyroid: Thyroid normal Chest Chest palpation & inspection: normal inspection of the chest Resp Effort & Inspection: normal respiratory effort and no audible wheezes Auscultation: clear to auscultation bilaterally, no crackles, no wheezes and lung sounds not diminished Cardio Rate: regular rate Rhythm: regular rhythm Peripheral pulses: radial pulses present and dorsalis pedis present GI Other: guaiac negative prostate N Palpation (GI): no masses Auscultation: normal bowel sounds and normoactive bowel sounds Male General Exam: Yes normal external exam Skin General skin exam: no rashes or lesions noted Rashes: no rashes Neuro General: No confusion Cranial nerves: Yes Equal, round and reactive pupils present and Yes Normal hearing present Cognition (Neuro): normal cognition Gait exam (Neuro): Normal gait present Motor exam (neuro): 5/5 motor strength present throughout Deep tendon reflexes (DTR's): Right brachioradialis reflex intensity grade: 2+, Left brachioradialis reflex intensity grade: 2+, Right patellar reflex intensity grade: 2+ and Left patellar reflex intensity grade: 2+ Extrem General: No edema Coding Level of Care Code Est Pt Prev Care >65y(67456) Diagnoses Annual physical exam Z00.00 Cerebrovascular accident (CVA), unspecified mechanism I63.9 CVA mechanism: unspecified Benign prostatic hyperplasia without lower urinary tract symptoms N40.0 Lower urinary tract symptom presence: symptoms absent Impaired glucose tolerance R73.02 Primary hypertension I10 Hypertension type: primary hypertension Hypercholesterolemia E78.00 Tinnitus H93.19 Assessment & Plan Assessment & Plan (1) Annual physical exam: Code(s): Z00.00 - Encounter for general adult medical examination without abnormal findings Category: Medical Plan: Patient is advised to eat healthy, keep well hydrated, keep active and have adequate sleep. (2) CVA (cerebral vascular accident): Comment: November 2018. No residual Code(s): I63.9 - Cerebral infarction, unspecified Category: Medical Qualifiers: CVA mechanism: unspecified Qualified Code(s): I63.9 - Cerebral infarction, unspecified Plan: Presently on anticoagulation (3) BPH (benign prostatic hyperplasia): Code(s): N40.0 - Benign prostatic hyperplasia without lower urinary tract symptoms Category: Medical Qualifiers: Lower urinary tract symptom presence: symptoms absent Qualified Code(s): N40.0 - Benign prostatic hyperplasia without lower urinary tract symptoms Plan: Stable (4) Impaired glucose tolerance: Code(s): R73.02 - Impaired glucose tolerance (oral) Category: Medical Plan: Decrease the amount of carbohydrate intake, pasta, bread, rice and potatoes are all sugar and that is aside from all the sweet stuff, remember that fruits are good but they are Sweet also. (5) Hypertension: Code(s): I10 - Essential (primary) hypertension Category: Medical Qualifiers: Hypertension type: primary hypertension Qualified Code(s): I10 - Essential (primary) hypertension Plan: Continue with blood pressure medication. Decrease salt intake and exercise on amlodipine 5 mg once a day (6) Hypercholesterolemia: Code(s): E78.00 - Pure hypercholesterolemia, unspecified Category: Medical Plan: Avoid fried foods, chicken skin, eggs, butter margarine, pastries and meat. Be it pork or beef they have a lot of cholesterol LDL goal of less than 70 and triglyceride of less than 150 on atorvastatin 80 mg once a day (7) Tinnitus: Code(s): H93.19 - Tinnitus, unspecified ear Category: Medical Plan History of Present Illness The patient is a 65-year-old male presenting for a physical exam. His past medical history is significant for a severe illness in November 2018 without residual effects, benign prostatic hyperplasia, hypertension, hypercholesterolemia, and impaired glucose tolerance. He is on chronic anticoagulation with warfarin and was last seen in November for impacted cerumen. The patient's current medications include Tylenol as needed, amlodipine 5 mg, atorvastatin 80 mg, vitamin B12, sildenafil, and warfarin. He avoids NSAIDs due to their effect on his INR and notes that Tylenol also causes a slight increase. He has known allergies to Augmentin, penicillin, clindamycin, and Tylenol. For health screenings, the patient had a CT colonography in November 2020, with the next one scheduled for either 2025 or 2026. He has not had any new diagnoses or surgeries since his last visit. His weight has been stable. Health Maintenance - Colon Cancer Screening: Patient had a CT colonography in November 2020 and is due for a follow-up, which will be coordinated with his principal bioinformatics specialist. - Prostate Cancer Screening: The recent lab work did not include a PSA level. - His PSA level last year was 0.46 ng/mL. - An order was placed for fasting labs, including a PSA, to be done in January. - Vaccinations: His tetanus shot is up to date, and he recently received his flu shot. - The pneumonia vaccine was recommended as per guidelines for his age, but he deferred it. - The shingles and COVID-19 vaccines were also discussed and recommended. - Cardiovascular Risk Reduction: Counseled on a low-cholesterol diet to help lower his LDL, which is currently 89 mg/dL against a goal of <70 mg/dL. - Diabetes Prevention: Counseled on dietary modifications, including reducing sugar and carbohydrates, to manage his prediabetes diagnosis (HbA1c 6.0%). Social History - Tobacco Use: Denies current use of cigarettes. - Alcohol Use: Reports drinking two beers per month when dining out. - Illicit Drug Use: Denies use. - Diet: Reports making efforts to reduce sugar intake. - His diet is also managed to maintain a stable INR while on warfarin. Review of Systems - Constitutional: Denies fever. - Weight has been stable. - HEENT: Reports tinnitus (ringing in ears). - Denies dysphagia. - Cardiovascular: Denies chest pain, discomfort, heaviness, or waking up with shortness of breath. - Respiratory: Denies dyspnea on exertion with activities such as climbing a flight of stairs. - Gastrointestinal: Denies heartburn, changes in bowel movements, or hematochezia. - Genitourinary: Reports nocturia twice per night, which is his baseline. - Denies other urinary problems. - Neurological: Denies syncope or dizziness. Physical Exam General: Cooperative, healthy appearing, comfortable, no acute distress and well developed Orientation: Patient oriented x3 Limitations: No limitations Head: Normal to inspection Ears: Hearing grossly normal bilaterally, but patient reports tinnitus and has an appointment with an ear doctor Nose: Normal external nose present Face and sinus: Normal facial exam Eyes: Appearance normal, both eyes and all related structures Neck: Normal visual inspection and Yes full ROM Respiratory: Normal respiratory effort and able to speak in complete sentences. Clear to auscultation bilaterally Cardiovascular: Regular rate and rhythm. Normal S1 and S2 GI: Normal to inspection. Soft to palpation and nontender Skin: No rashes or lesions noted Neuro: Patient oriented x3 Extremities: Normal to inspection, but some swelling noted in the feet, likely due to medication Results - hemoglobin A1c: 6.0% - CBC: Normal with no anemia. - Electrolytes: Normal. - Renal function: Creatinine 1.01 mg/dL. - Fasting Glucose: 115 mg/dL. - LDL Cholesterol: 89 mg/dL. - Liver function tests: Normal. - Thyroid function: Normal. - PSA: Not performed on recent labs. - CT Colonography (November 2020): No acute findings mentioned. Plan Patient was informed and verbally consented to the use of an ambient scribe for clinic note documentation during this visit. 1. Wellness Examination The patient presented for a routine physical examination. His chronic conditions are generally stable. Health maintenance, including vaccinations and screenings, was discussed. A work note for the physical will be provided. 2. Hypercholesterolemia The patient's LDL cholesterol is 89 mg/dL, which is above the goal of less than 70 mg/dL given his history of a stroke. He is currently on the maximum dose of atorvastatin 80 mg daily. Options discussed included lifestyle and dietary modification, switching to rosuvastatin, or adding ezetimibe. The patient opted to focus on dietary changes. Follow-up labs, including a lipid panel, will be performed in approximately 3-5 months. 3. Prediabetes The patient's fasting blood sugar of 115 mg/dL and hemoglobin A1c of 6.0% are indicative of prediabetes. He was counseled on the importance of dietary modifications, including reducing intake of sugar and carbohydrates such as pasta, bread, rice, and potatoes, to prevent progression to diabetes. 4. Hypertension The patient's hypertension is well-controlled with amlodipine 5 mg daily. He will continue his current medication regimen. 5. History Of Cerebrovascular Accident/Chronic Anticoagulation The patient has a history of a CVA in 2019 and is stable on chronic warfarin therapy. His INR is managed by a separate clinic and he is aware of the necessary dietary considerations. He will continue with his current anticoagulation management. 6. Prostate Screening A PSA level was inadvertently omitted from the recent blood work. His past results have been normal, with the last level being 0.46 ng/mL. A digital rectal exam was performed and the prostate was not enlarged. An order has been placed for fasting labs, including a PSA, to be completed in January. 7. Tinnitus The patient reports recent onset of tinnitus. He has already scheduled an appointment with an nuclear power plant engineer. He will proceed with that evaluation. 8. Peripheral Edema Mild pitting edema was noted in the feet during the physical exam, which is likely a side effect of amlodipine. The patient was previously unaware of the swelling. As the edema is mild, the plan is to monitor without changing medication at this time. Discussion Notes I reviewed the patient's recent lab results with him, noting his prediabetic status with a fasting glucose of 115 and A1c of 6.0. I counseled him on dietary changes to reduce sugar and carbohydrate intake. We discussed his hypercholesterolemia; his LDL of 89 is above the goal of <70 given his history of a stroke. I presented three management options, and he elected to pursue dietary modifications first. We will re-evaluate his cholesterol on follow-up labs in January. I informed him that his PSA was missed on the recent labs and placed an order to have it checked with his repeat labs. I also noted mild foot swelling, likely from his amlodipine, and advised monitoring. We discussed recommended immunizations, including the pneumonia shot (which he deferred), as well as shingles and COVID-19 vaccines. I reassured him that he is doing well overall and our current adjustments are aimed at preventing future health issues. Patient Instructions - Continue taking your prescribed medications, including amlodipine, atorvastatin, and warfarin. - Try to eat less sugar and carbohydrates (like pasta, bread, rice, and potatoes) to help keep your blood sugar in a healthy range. - Work on reducing high-cholesterol foods in your diet, such as red meat, fried foods, and fast food, to help lower your cholesterol. - You will need to get fasting blood work done in January to recheck your cholesterol and check your PSA (prostate) level. - Keep your scheduled appointment with the ear doctor to check on the ringing in your ears. - You may consider getting the shingles vaccine and the updated COVID-19 vaccine, which are available at your local pharmacy. - Keep an eye on the swelling in your feet. If it gets worse, please call our office. 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 Orders: Orders Prostate Specific Antigen Scr 5 Months N52.9 - Male erectile dysfunction, unspecified Free T4 (Free Thyroxine) 5 Months N52.9 - Male erectile dysfunction, unspecified Thyroid Stimulating Hormone 5 Months N52.9 - Male erectile dysfunction, unspecified Vitamin B12 and Folate 5 Months N52.9 - Male erectile dysfunction, unspecified Lipid Panel 5 Months E78.00 - Pure hypercholesterolemia, unspecified, I63.9 - Cerebral infarction, unspecified Complete Blood Count Auto Diff 5 Months I63.9 - Cerebral infarction, unspecified Free T4 (Free Thyroxine) 5 Months I63.9 - Cerebral infarction, unspecified Hemoglobin A1c 5 Months R73.02 - Impaired glucose tolerance (oral) Comprehensive Met. Panel 5 Months R73.02 - Impaired glucose tolerance (oral)
--- OUTSIDE RECORDS SUMMARY | 2025-09-02 14:41 | XMS_ITS | Patient Health Record ---
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 Role Phone Lashonda Santiago Primary Care [...] Status Risk Notes Problem Colon cancer screening (154337527) Colon cancer screening (Z12.11) Active confirmed Problem Long-term current use of anticoagulant (988025992) alf (current) use of anticoagulants (Z79.01) Active confirmed Problem Pre-procedure evaluation check (324307143) Encounter for other preprocedural examination (Z01.818) Active confirmed Plan Of Treatment Future Test Test Name Order Date COLONOSCOPY 06/02/2014 COLONOSCOPY 05/31/2020 Insurance Providers Payer Name Payer Address Payer Phone Subscriber Number Group Number Insured Name Patient Relationship to Insured Coverage Start Date Coverage End Date [facility] [address] [place], [place] [phone] [id number] JONATHON BLAKELY (Skip) Self - patient is the insured Medical (General) History Medical History History ICD Code right bundle branch block stroke elevated cholesterol colonoscopy 10/16, one small tubular thelma noma, five-year followup Surgical History Surgery Date(Month/Year) wrist surgery hernia repair spermatocele repair
== END 2025-09-02 14:37 | disposition home or self-care (01) ==
LOC: HO.HMCH 13:43
PROVIDERS: PCP Internal Medicine; Visit Provider Internal Medicine
DX: Z00.00 Encounter for general adult medical examination without abnormal findings (principal); I63.9 Cerebral infarction, unspecified; N40.0 Benign prostatic hyperplasia without lower urinary tract symptoms; R73.02 Impaired glucose tolerance (oral); I10 Essential (primary) hypertension; E78.00 Pure hypercholesterolemia, unspecified; H93.19 Tinnitus, unspecified ear

== ENCOUNTER 2025-09-16 10:40 | Outpatient (AMB) | payer BC, SELFPAY ==
[2025-09-16 11:01] LABS: Prothrombin Time Whole Bld POC 34.1 sec (11.1-13.5); ~PT, ~INR - Anti Coag Clinic 2.8 (0.9-1.1)
--- NOTE | 2025-09-16 11:04 | MHC.OFFVISCO ---
Intake Intake Visit Reasons: Anticoagulation Allergies amoxicillin (Augmentin) Allergy (Unknown, Verified 09/16/25 10:54) RASH clavulanic acid (Augmentin) Allergy (Unknown, Verified 09/16/25 10:54) RASH penicillin V Allergy (Unknown, Verified 09/16/25 10:54) rash augmentin Allergy (Unknown, Uncoded 09/16/25 10:54) hives, swelling Clenbuterol HCl Allergy (Unknown, Uncoded 09/16/25 10:54) swelling Clindamycin HCl Allergy (Unknown, Uncoded 09/16/25 10:54) swelling Medication List - Last Reconciled 09/16/25 by Jelena Diaz RN acetaminophen (Tylenol) 325 mg PO QID PRN amlodipine 5 mg PO DAILY 90 days atorvastatin 80 mg PO BEDTIME 90 days carbamide peroxide 6.5% (Debrox) 5 drps otic (ear) left DAILY 4 days cyanocobalamin (vitamin B-12) 1,000 mcg PO DAILY sildenafil 50 mg PO DAILY PRN warfarin See Protocol 7.5mg x 4 days/ 5mg x 3 days, 1-2 tabs orally daily, as directed by Anticoagulation Services Nursing Note INR: 2.8 in therapeutic range Medications and supplements reviewed *C/O SCIATIC PAIN FROM BUTTOCKS TO FOOT THAT WENT AWAY THEN CAME BACK, GOING TO TRY TYLENOL AND ICEY HOT THEN HEAT OR ICE AND REST, HE WAS ENC TO CALL PCP - HE SAID HE WOULD IF NOT BETTER IN A FEW DAYS Denies any signs and symptoms of bleeding or bruising or clotting. Bleeding, bruising, clotting discussed Nutritional guidance given - INCREASE GREENS WHEN TAKING MORE TYLENOL THAN USUAL Dose: 5MG MWF/ 7.5MG X 4 DAYS F/U INR: 1MONTH Patient verbalizes understanding of instructions given Anti-Coag Initial Assessment Social Hx Patient Tobacco Use Status: Former Tobacco user Tobacco use type: Cigarette alcohol intake: current Coding Level of Care Code Est Patient Level 1 Diagnoses Current use of anticoagulant therapy Z79.01 Results AMB INR Fingerstick AMB INR Fingerstick 2.8 Last Edit by Jelena Diaz RN on 09/16/25 11:01 MANUAL ENTRY Assessment & Plan Assessment & Plan (1) Current use of anticoagulant therapy: Code(s): Z79.01 - senior care (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
== END 2025-09-16 11:09 | disposition home or self-care (01) ==
LOC: HO.ACS 10:40
PROVIDERS: PCP Internal Medicine; Visit Provider Internal Medicine Medical Oncology
DX: Z79.01 Long term (current) use of anticoagulants (principal)

== ENCOUNTER → 2025-09-16 10:40 | Outpatient (BNVA) | payer BC, SELFPAY | PROVIDERS: PCP Internal Medicine; Visit Provider Internal Medicine Medical Oncology | DX: Z79.01 Long term (current) use of anticoagulants (principal) | CPT/HCPCS: 85610; 99211 ==

== ENCOUNTER 2025-10-21 15:39 | Outpatient (AMB) | payer BC, SELFPAY ==
[2025-10-21 15:44] LABS: Prothrombin Time Whole Bld POC 41.1 sec (11.1-13.5); ~PT, ~INR - Anti Coag Clinic 3.4 (0.9-1.1)
--- NOTE | 2025-10-21 15:46 | MHC.OFFVISCO ---
Intake Intake Visit Reasons: Anticoagulation Allergies amoxicillin (Augmentin) Allergy (Unknown, Verified 10/21/25 15:40) RASH clavulanic acid (Augmentin) Allergy (Unknown, Verified 10/21/25 15:40) RASH penicillin V Allergy (Unknown, Verified 10/21/25 15:40) rash augmentin Allergy (Unknown, Uncoded 10/21/25 15:40) hives, swelling Clenbuterol HCl Allergy (Unknown, Uncoded 10/21/25 15:40) swelling Clindamycin HCl Allergy (Unknown, Uncoded 10/21/25 15:40) swelling Medication List - Last Reconciled 10/21/25 by Marina Sylvester, RN acetaminophen (Tylenol) 325 mg PO QID PRN amlodipine 5 mg PO DAILY 90 days atorvastatin 80 mg PO BEDTIME 90 days carbamide peroxide 6.5% (Debrox) 5 drps otic (ear) left DAILY 4 days cyanocobalamin (vitamin B-12) 1,000 mcg PO DAILY sildenafil 50 mg PO DAILY PRN warfarin See Protocol 7.5mg x 4 days/ 5mg x 3 days, 1-2 tabs orally daily, as directed by Anticoagulation Services Nursing Note INR: 3.4 out of therapeutic range of 2-3 Medications and supplements reviewed No changes in health, diet, medications, or supplements, Denies any signs and symptoms of bleeding or bruising or clotting. Bleeding, bruising, clotting discussed Nutritional guidance given to have a serving of greens today Dose: decrease tomorrow's dose to 5mg (7.5mg) then usual dose of 7.5mg X 4 days and 5mg X 3 days (M/W/F) F/U INR: 4 weeks Patient verbalizes understanding of instructions given Anti-Coag Initial Assessment Social Hx Patient Tobacco Use Status: Former Tobacco user Tobacco use type: Cigarette alcohol intake: current Coding Level of Care Code Est Patient Level 1 Diagnoses Current use of anticoagulant therapy Z79.01 Results AMB INR Fingerstick AMB INR Fingerstick 3.4 Last Edit by Marina Sylvester, ARTEM on 10/21/25 15:45 interface delay Assessment & Plan Assessment & Plan (1) Current use of anticoagulant therapy: Code(s): Z79.01 - alf (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
--- OUTSIDE RECORDS SUMMARY | 2025-10-21 16:38 | XMS_ITS | Patient Health Record ---
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 Name Role Phone Lashonda Santiago Primary Care Provider Bert Esquivel Jr Unavailable Allergies Allergen (clinical drug ingredient) Drug/Non Drug Allergy documented on EMR Reaction Allergy Type Onset Date Status amoxicillin / clavulanate Augmentin Unknown Drug Allergy Active clindamycin Clindamycin HCl Unknown Drug Allergy Active Reason For Referral No Information Medications Medication SIG (Take, Route, Frequency, Duration) Notes Start Date End Date Status Warfarin Sodium 5 MG Tablet 1 tablet Ora lly 5mg m,w,f and 7.5 t,th sat,sun Active MiraLax (colon prep) 8.3 ounce ((238) grams mixed with Gatorade or Crystal Light orally begin at 5:00 p.m. the day before the procedure; Duration: 1 day 05/31/2020 Active amLODIPine Besylate 5 MG Tablet 1 tablet Orally Once a day; Duration: 30 day(s) Active Atorvastatin Calcium 80 MG Tablet 1 tablet Orally Once a day Active Immunizations Vaccine Route Administration Date Status Comme nts Influenza Unknown 08/03/2019 Administered Social History Social History Drugs/Alcohol: Social Info Question Answer Notes Alcohol Screen Did you have a drink containing alcohol in the past year? Yes How often did you have a drink containing alcohol in the past year? Never (0 point) How many drinks did you have on a typical day when you were drinking in the past year? 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 [place] Problems Problem Type SNOMED Code ICD Code Onset Dates Problem Status W/U Status Risk Notes Problem Colon cancer screening (384725672) Colon cancer screening (Z12.11) Active confirmed Problem Long-term current use of anticoagulant (500281462) senior care (current) use of anticoagulants (Z79.01) Active confirmed Problem Pre-procedure evaluation check (794442971) Encounter for other preprocedural examination (Z01.818) Active confirmed Plan Of Treatment Future Test Test Name Order Date COLONOSCOPY 06/02/2014 COLONOSCOPY 05/31/2020 Insurance Providers Payer Name Payer Address Payer Phone Subscriber Number Group Number Insured Name Patient Relationship to Insured Coverage Start Date Coverage End Date [facility] [address] [place], [place] [id number] [phone] [id number] JONATHON BLAKELY (Skip) Self - patient is the insured Medical (General) History Medical History History ICD Code right bundle branch block stroke elevated cholesterol colonoscopy 10/16, one small tubular thelma noma, five-year followup Surgical History Surgery Date(Month/Year) wrist surgery hernia repair spermatocele repair
== END 2025-10-21 15:50 | disposition home or self-care (01) ==
LOC: HO.ACS 15:40
PROVIDERS: PCP Internal Medicine; Visit Provider Internal Medicine Medical Oncology
DX: Z79.01 Long term (current) use of anticoagulants (principal)

== ENCOUNTER → 2025-10-21 15:39 | Outpatient (BNVA) | payer BC, SELFPAY | PROVIDERS: PCP Internal Medicine; Visit Provider Internal Medicine Medical Oncology | DX: Z86.73 Personal history of transient ischemic attack (TIA), and cerebral infarction without residual deficits (principal); Z51.81 Encounter for therapeutic drug level monitoring; Z79.01 Long term (current) use of anticoagulants | CPT/HCPCS: 85610; 99211 ==